=== PATIENT | male | born 1980 | race Caucasian/White ===

== ENCOUNTER → 2016-12-01 | Outpatient (CLI) | payer BC ==
--- NOTE | 2016-12-02 12:34 | XR ---
EXAMINATION TYPE: XR shoulder complete LT DATE OF EXAM: 12/01/2016 12:14 PM COMPARISON: NONE HISTORY: Pain TECHNIQUE: Three views are submitted. FINDINGS: The osseous structures are intact. There is no acute fracture or dislocation. The AC joint is maint ained. Questionable lucency along the mid shaft of the clavicle superiorly. IMPRESSION: 1. Questionable lucency along the cortex of the mid left clavicle. If this is an area of point tender ness recommend dedicated clavicular series.
--- NOTE | 2016-12-02 12:38 | XR ---
EXAMINATION TYPE: XR cervical spine comp DATE OF EXAM: 12/01/2016 12:14 PM COMPARISON: NONE HISTORY: Pain TECHNIQUE: Four views are submitted. FINDINGS: The odontoid is intact. There are no compression deformities. The prevertebral soft tissue structur es are within normal limits. Loss the normal cervical lordosis. There is a slight retrolisthesis of C5 relative to C6 and multilevel facet arthropathy. IMPRESSION: 1. Loss of the normal cervical lordosis. No foraminal encroachment. Facet arthropathy noted at multip le levels. Slight retrolisthesis of C5 relative to C6. Consider follow-up MRI.
== END ==
LOC: RADXRYALE 10:51
PROVIDERS: ATTEND Physician Assistant Medical
DX: M46.82 Other specified inflammatory spondylopathies, cervical region (principal); M25.512 Pain in left shoulder; G89.29 Other chronic pain
CPT/HCPCS: 72050

== ENCOUNTER → 2017-01-04 | Outpatient (CLI) | payer BC ==
--- NOTE | 2017-01-04 21:28 | MR ---
EXAMINATION TYPE: MR reg/candie wo con DATE OF EXAM: 01/04/2017 5:56 PM COMPARISON: NONE HISTORY: Neck pain, headaches, lt arm weakness, LBP, BLE radic, lumbar surgery 8 years ago CONTRAST: 0 mL intravenous MultiHance. TECHNIQUE: Multiplanar, multisequence images of the lumbar spine were acquired. FINDINGS: L5-S1: There is loss of disc height through this level. Right paracentral disc herniation is present. This is adjacent to the exiting right S1 nerve root. Compression is not identified. No spinal canal stenosis is present. Facet degenerative changes are present. L4-L5: Minimal disc bulge is present with mild anterior thecal sac flattening. No AP spinal canal bandar nosis is present. Neural foramen are patent. Disc height and disc hydration is normal. L3-L4: No significant disc bulge or disc herniation. No spinal canal stenosis. No foraminal stenosi s. Neural foramen are patent.. L2-L3: No significant disc bulge or disc herniation. No spinal canal stenosis. No foraminal stenosi s. Neural foramen are patent.. L1-L2: No significant disc bulge or disc herniation. No spinal canal stenosis. No foraminal stenosi s. Neural foramen are patent.. T12-L1: No significant disc bulge or disc herniation. No spinal canal stenosis. No foraminal stenos is. Neural foramen are patent.. IMPRESSION: 1. Right paracentral disc herniation L5-S1 with exiting right S1 nerve root contact without compressi on or displacement. EXAMINATION TYPE: MR reg/candie wo con DATE OF EXAM: 01/04/2017 5:56 PM COMPARISON: NONE HISTORY: Neck pain, headaches, lt arm weakness, LBP, BLE radic, lumbar surgery 8 years ago CONTRAST: Performed utilizing 0 mL intravenous MultiHance gadolinium contrast. TECHNIQUE: Multiplanar multiecho imaging on a 3.0 Kandis magnet is performed through the cervical spin e. FINDINGS: The craniovertebral junction is normal. Vertebral body alignment is normal. Cord signal is normal. C7-T1: No focal disc herniation or significant disc bulge is evident. No spinal canal stenosis or n eural foraminal stenosis is present. C6-7: Minimal central bulge may be present with anterior thecal sac contact. No AP spinal canal steno sis present. Neural foramen are patent.. C5-6: Mild central focal bulge is present with mild anterior thecal sac compression. No cord contact is evident. No spinal canal stenosis present. Neural foramen are patent.. C4-5: No focal disc herniation or significant disc bulge is evident. No spinal canal stenosis or flakito ral foraminal stenosis is present. C3-4: No focal disc herniation or significant disc bulge is evident. No spinal canal stenosis or flakito ral foraminal stenosis is present. C2-3: No focal disc herniation or significant disc bulge is evident. No spinal canal stenosis or flakito ral foraminal stenosis is present. IMPRESSIONS: 1. Mild central bulge C5-6 with minimal central disc bulge C6-7
== END | disposition home or self-care (01) ==
LOC: RADMRIMAIN 16:40
PROVIDERS: ATTEND Physician Assistant Medical
DX: M50.222 Other cervical disc displacement at C5-C6 level (principal); M50.30 Other cervical disc degeneration, unspecified cervical region; M51.27 Other intervertebral disc displacement, lumbosacral region; M43.10 Spondylolisthesis, site unspecified; M12.88 Other specific arthropathies, not elsewhere classified, other specified site
CPT/HCPCS: 72141; 72148

== ENCOUNTER 2019-01-25 18:21 | Inpatient (IN) | payer BC ==
[2019-01-25] MEDS ORDERED: SODIUM CHLORIDE 0.9% 1,000 ML IV STA ×2 (18:59→23:28)
[2019-01-25] MEDS ORDERED: HYDROmorphone 1 MG/ML 1 ML SYRINGE IVP STA (18:59)
[2019-01-25] MEDS ORDERED: METOCLOPRAMIDE 5 MG/ML 2 ML VIAL IVP STA (18:59)
[2019-01-25] MEDS ORDERED: diphenhydrAMINE 50 MG/ML 1 ML VIAL IVP STA (19:00)
[2019-01-25 19:19] LABS: Basophils % (A) 0 %; Eosinophils % (A) 0 %; HCT 45.1 % (39.0-53.0); HGB 15.4 gm/dL (13.0-17.5); Lymphocytes # (A) 0.8 k/uL (1.0-4.8); Lymphocytes % (A) 8 %; MCH 30.3 pg (25.0-35.0); MCHC 34.1 g/dL (31.0-37.0); MCV 88.8 fL (80.0-100.0); Mean Platelet Volume 7.4; Monocytes # (A) 0.5 k/uL (0-1.0); Monocytes % (A) 4 %; Neutrophils % (A) 86 %; Platelet Count 309 k/uL (150-450); RBC 5.07 m/uL (4.30-5.90); RDW 13.8 % (11.5-15.5); WBC 10.5 k/uL (3.8-10.6)
[2019-01-25 19:32] LABS: ALT 28 U/L (21-72); AST 22 U/L (17-59); African American GFR (CKD) >90 (>60 ml/min/1.73 sqM); Albumin 4.8 g/dL (3.5-5.0); Alkaline Phosphatase 82 U/L (38-126); Amylase 44 U/L (30-110); Anion Gap 11 mmol/L; Blood Urea Nitrogen 16 mg/dL (9-20); Calcium 9.9 mg/dL (8.4-10.2); Carbon Dioxide 24 mmol/L (22-30); Chloride 103 mmol/L (98-107); Glucose 136 mg/dL (74-99); Lipase 42 U/L (23-300); Potassium 4.2 mmol/L (3.5-5.1); Sodium 138 mmol/L (137-145); Total Bilirubin 0.7 mg/dL (0.2-1.3); Total Protein 7.5 g/dL (6.3-8.2)
[2019-01-25 19:43] LABS: Appearance,Urine Turbid (Clear); Bilirubin,Urine Negative (Negative); Blood,Urine Negative (Negative); Budding Yeast,Urine Many /hpf; Color,Urine Yellow; Glucose,Urine (UA) Negative (Negative); Ketones,Urine 2+ (Negative); Leukocyte Esterase,Urine Negative (Negative); Mucus,Urine Rare /hpf; Nitrite,Urine Negative (Negative); PH, Urine 8.5 (5.0-8.0); Protein,Urine Trace (Negative); Specific Gravity,Urine 1.023 (1.001-1.035); Urobilinogen,Urine <2.0 mg/dL (<2.0)
[2019-01-25] MEDS ORDERED: SODIUM CHLORIDE 0.9% 1,000 ML IV ONE (20:00)
--- NOTE | 2019-01-25 20:04 | ED ---
Abdominal Pain HPI - General Source: patient, EMS Mode of arrival: EMS Limitations: no limitations <Kaci Mooney - Last Filed: 01/25/19 23:02> <Flako Rebollar - Last Filed: 01/25/19 23:28> - General Chief Complaint: Abdominal Pain Stated Complaint: abd pain Time Seen by Provider: 01/25/19 18:41 - History of Present Illness Initial Comments: 38-year-old male patient presents to the emergency department today for evaluation of abdominal pain and vomiting. Patient states started earlier this afternoon. Patient states that the pain is centrally located radiating through to his back. Patient states he's had several episodes of vomiting. Denies any diarrhea. Denies any hematemesis, hematochezia, melena. States he feels chilled and feverish right now. Patient states he has had appendectomy and hernia repair in the past. Denies any hematuria, dysuria, urinary urgency, urinary frequency. Denies any pain more on one side than the other. Denies any chest pain or shortness of breath. Patient denies any recent rash, numbness, tingling, dizziness, weakness, headache, visual changes, or any other comp laints. (Kaci Mooney) - Related Data Home Medications Medication Instructions Recorded Confirmed Meloxicam [Mobic] 7.5 mg PO BID 01/25/19 01/25/19 oxyCODONE-APAP 7.5-325MG [Percocet 1 tab PO Q4HR PRN 01/25/19 01/25/19 7.5-325 mg] traZODone HCL 25 - 50 mg PO HS PRN 01/25/19 01/25/19 Allergies Allergy/AdvReac Type Severity Reaction Status Date / Time No Known Allergies Allergy Unverified 01/25/19 18:59 Review of Systems ROS Other: All systems not noted in ROS Statement are negative. <Kaci Mooney - Last Filed: 01/25/19 23:02> ROS Other: All systems not noted in ROS Statement are negative. <Flako Rebollar - Last Filed: 01/25/19 23:28> ROS Statement: Those systems with pertinent positive or pertinent negative responses have been documented in the HPI. Past Medical History Past Medical History: No Reported History History of Any Multi-Drug Resistant Organisms: None Reported Past Surgical History: Appendectomy, Orthopedic Surgery Additional Past Surgical History / Comment(s): several back surgeries; hernia surgery Past Psychological History: No Psychological Hx Reported Smoking Status: Former smoker Past Alcohol Use History: None Reported Past Drug Use History: None Reported <Kaci Mooney - Last Filed: 01/25/19 23:02> General Exam Limitations: no limitations General appearance: alert, in no apparent distress, other (This is a well-deve loped, well-nourished adult male patient in mild distress related to pain and vomiting. Vital signs upon presentation are temperature 97.6F, pulse 51, respirations 18, blood pressure 127/76, pulse ox 100% on room air.) Eye exam: Present: normal appearance, PERRL, EOMI. Absent: scleral icterus, conjunctival injection, periorbital swelling ENT exam: Present: normal exam, normal oropharynx, mucous membranes moist Respiratory exam: Present: normal lung sounds bilaterally. Absent: respiratory distress, wheezes, rales, rhonchi, stridor Cardiovascular Exam: Present: regular rate, normal rhythm, normal heart sounds. Absent: systolic murmur, diastolic murmur, rubs, gallop, clicks GI/Abdominal exam: Present: soft, tenderness (Generalized) Neurological exam: Present: alert, oriented X3, CN II-XII intact Psychiatric exam: Present: normal affect, normal mood Skin exam: Present: warm, dry, intact, normal color. Absent: rash <Kaci Mooney - Last Filed: 01/25/19 23:02> Course Vital Signs 01/25/19 01/25/19 01/25/19 18:25 19:23 20:57 Temperature 97.6 F Pulse Rate 51 L 56 L 51 L Respiratory 18 20 16 Rate Blood Pressure 127/76 127/76 130/96 O2 Sat by Pulse 100 100 100 Oximetry 01/25/19 23:00 Temperature Pulse Rate 51 L Respiratory 20 Rate Blood Pressure 135/79 O2 Sat by Pulse Oximetry Medical Decision Making - Lab Data Result diagrams: 01/25/19 19:03 01/25/19 19:03 <Kaci Mooney - Last Filed: 01/25/19 23:02> - Lab Data Result diagrams: 01/25/19 19:03 01/25/19 19:03 <Flako Rebollar - Last Filed: 01/25/19 23:28> - Medical Decision Making Patient reevaluated by myself, Dr. Rebollar. Patient states he does have now some mild improvement with morphine. Abdomen exam has mild to moderate diffuse tenderness with mild guarding. Abdomen is not rigid. Results and reports reviewed. Family updated. Patient updated. Case was discussed in detail with Dr. Beltran who is agreeable to admit patient for observation and will reevaluate in the morning. Patient then again reevaluated and feels restless. This may be a results of Reglan given. Patient will be given Ativan and further medication. Repeat test will be ordered for now. (Flako Rebollar) - Lab Data Lab Results 01/25/19 01/25/19 01/25/19 Range/Units 19:03 19:03 19:03 WBC 10.5 (3.8-10.6) k/uL RBC 5.07 (4.30-5.90) m/uL Hgb 15.4 (13.0-17.5) gm/dL Hct 45.1 (39.0-53.0) % MCV 88.8 (80.0-100.0) fL MCH 30.3 (25.0-35.0) pg MCHC 34.1 (31.0-37.0) g/dL RDW 13.8 (11.5-15.5) % Plt Count 309 (150-450) k/uL Neutrophils % 86 % Lymphocytes % 8 % Monocytes % 4 % Eosinophils % 0 % Basophils % 0 % Neutrophils # 9.0 H (1.3-7.7) k/uL Lymphocytes # 0.8 L (1.0-4.8) k/uL Monocytes # 0.5 (0-1.0) k/uL Eosinophils # 0.0 (0-0.7) k/uL Basophils # 0.0 (0-0.2) k/uL Sodium 138 (137-145) mmol/L Potassium 4.2 (3.5-5.1) mmol/L Chloride 103 (98-107) mmol/L Carbon Dioxide 24 (22-30) mmol/L Anion Gap 11 mmol/L BUN 16 (9-20) mg/dL Creatinine 0.75 (0.66-1.25) mg/dL Est GFR (CKD-EPI)AfAm >90 (>60 ml/min/1.73 sqM) Est GFR (CKD-EPI)NonAf >90 (>60 ml/min/1.73 sqM) Glucose 136 H (74-99) mg/dL Lactic Ac Sepsis Rflx Plasma Lactic Acid Mohan 2.2 H* (0.7-2.0) mmol/L Calcium 9.9 (8.4-10.2) mg/dL Total Bilirubin 0.7 (0.2-1.3) mg/dL AST 22 (17-59) U/L ALT 28 (21-72) U/L Alkaline Phosphatase 82 (38-126) U/L Total Protein 7.5 (6.3-8.2) g/dL Albumin 4.8 (3.5-5.0) g/dL Amylase 44 (30-110) U/L Lipase 42 (23-300) U/L Urine Color Urine Appearance (Clear) Urine pH (5.0-8.0) Ur Specific [place] (1.001-1.035) Urine Protein (Negative) Urine Glucose (UA) (Negative) Urine Ketones (Negative) Urine Blood (Negative) Urine Nitrite (Negative) Urine Bilirubin (Negative) Urine Urobilinogen (<2.0) mg/dL Ur Leukocyte Esterase (Negative) Urine Mucus (None) /hpf Urine Yeast (Budding) (None) /hpf Urine Opiates Screen (NotDetected) Ur Oxycodone Screen (NotDetected) Urine Methadone Screen (NotDetected) Ur Propoxyphene Screen (NotDetected) Ur Barbiturates Screen (NotDetected) U Tricyclic Antidepress (NotDetected) Ur Phencyclidine Scrn (NotDetected) Ur Amphetamines Screen (NotDetected) U Methamphetamines Scrn (NotDetected) U Benzodiazepines Scrn (NotDetected) Urine Cocaine Screen (NotDetected) U Marijuana (THC) Screen (NotDetected) 01/25/19 01/25/19 01/25/19 Range/Units 19:34 19:35 20:36 WBC (3.8-10.6) k/uL RBC (4.30-5.90) m/uL Hgb (13.0-17.5) gm/dL Hct (39.0-53.0) % MCV (80.0-100.0) fL MCH (25.0-35.0) pg MCHC (31.0-37.0) g/dL RDW (11.5-15.5) % Plt Count (150-450) k/uL Neutrophils % % Lymphocytes % % Monocytes % % Eosinophils % % Basophils % % Neutrophils # (1.3-7.7) k/uL Lymphocytes # (1.0-4.8) k/uL Monocytes # (0-1.0) k/uL Eosinophils # (0-0.7) k/uL Basophils # (0-0.2) k/uL Sodium (137-145) mmol/L Potassium (3.5-5.1) mmol/L Chloride (98-107) mmol/L Carbon Dioxide (22-30) mmol/L Anion Gap mmol/L BUN (9-20) mg/dL Creatinine (0.66-1.25) mg/dL Est GFR (CKD-EPI)AfAm (>60 ml/min/1.73 sqM) Est GFR (CKD-EPI)NonAf (>60 ml/min/1.73 sqM) Glucose (74-99) mg/dL Lactic Ac Sepsis Rflx Y Plasma Lactic Acid Mohan (0.7-2.0) mmol/L Calcium (8.4-10.2) mg/dL Total Bilirubin (0.2-1.3) mg/dL AST (17-59) U/L ALT (21-72) U/L Alkaline Phosphatase (38-126) U/L Total Protein (6.3-8.2) g/dL Albumin (3.5-5.0) g/dL Amylase (30-110) U/L Lipase (23-300) U/L Urine Color Yellow Urine Appearance Turbid (Clear) Urine pH 8.5 H (5.0-8.0) Ur Specific [place] 1.023 (1.001-1.035) Urine Protein Trace H (Negative) Urine Glucose (UA) Negative (Negative) Urine Ketones 2+ H (Negative) Urine Blood Negative (Negative) Urine Nitrite Negative (Negative) Urine Bilirubin Negative (Negative) Urine Urobilinogen <2.0 (<2.0) mg/dL Ur Leukocyte Esterase Negative (Negative) Urine Mucus Rare H (None) /hpf Urine Yeast (Budding) Many H (None) /hpf Urine Opiates Screen Detected H (NotDetected) Ur Oxycodone Screen Detected H (NotDetected) Urine Methadone Screen Not Detected (NotDetected) Ur Propoxyphene Screen Not Detected (NotDetected) Ur Barbiturates Screen Not Detected (NotDetected) U Tricyclic Antidepress Not Detected (NotDetected) Ur Phencyclidine Scrn Not Detected (NotDetected) Ur Amphetamines Screen Not Detected (NotDetected) U Methamphetamines Scrn Not Detected (NotDetected) U Benzodiazepines Scrn Not Detected (NotDetected) Urine Cocaine Screen Not Detected (NotDetected) U Marijuana (THC) Screen Not Detected (NotDetected) Disposition Decision to Admit Reason: Admit from EC Decision Date: 01/25/19 Decision Time: 23:03 <Kaci Mooney - Last Filed: 01/25/19 23:02> <Flako Rebollar - Last Filed: 01/25/19 23:28> Clinical Impression: Intractable abdominal pain, Dysfunctional gallbladder Disposition: ADMITTED IP TO THIS [facility] Condition: Serious
--- NOTE | 2019-01-25 20:15 | CT ---
EXAMINATION TYPE: CT abdomen pelvis w con DATE OF EXAM: 01/25/2019 COMPARISON: None HISTORY: Abdomen pain starting today, radiating into back CT DLP: 776 mGycm Automated exposure control for dose reduction was used. TECHNIQUE: Helical acquisition of images was performed from the lung bases through the pelvis. CONTRAST: Performed without Oral Contrast and with IV Contrast, patient injected with 100 mL of Isovue 300. FINDINGS: Lung bases are clear. There is no pleural effusion. Heart size is normal. Stomach appears normal. Liver spleen pancreas appear normal. Bile ducts are not dilated. Gallbladder is mildly dilated and measures 4.5 cm. There is no adrenal mass. Kidneys show satisfactory contrast opacification. There is no hydronephrosi s. There is no evidence of renal mass. There is no retroperitoneal adenopathy. Ureters are not dilated. Bladder distends smoothly. There is small prostate calcification on the righ t side. There is no inguinal hernia. There is no free fluid in the pelvis. There is no mesenteric delfina ma. There is no evidence of a bowel obstruction. I see no intestinal wall thickening. There is no asc ites or free air. There is narrowing of L5-S1 disc space. I see no bony destructive process. The bony pelvis appears intact. Appendix is not seen. There is no sign of a thickened appendix. IMPRESSION: NEGATIVE CT SCAN ABDOMEN AND PELVIS. MILD SPONDYLOSIS AT L5-S1.
[2019-01-25] MEDS ORDERED: HYDROmorphone 2 MG/ML 1 ML SYRINGE IVP STA (20:30)
[2019-01-25] MEDS ORDERED: DICYCLOMINE 10 MG/ML 2 ML AMP IM STA (20:30)
[2019-01-25 20:56] LABS: Amphetamine Screen,Urine Not Detected (NotDetected); Barbiturate Screen,Urine Not Detected (NotDetected); Benzodiazepines Screen,Urine Not Detected (NotDetected); Cocaine Screen,Urine Not Detected (NotDetected); Methadone Screen, Urine Not Detected (NotDetected); Opiate Screen,Urine Detected (NotDetected); Oxycodone Screen, Urine Detected (NotDetected); Phencyclidine Screen,Urine Not Detected (NotDetected); Tricyclic Antidepressant,Urine Not Detected (NotDetected); Urn Cannabinoid Scrn Not Detected (NotDetected)
--- NOTE | 2019-01-25 21:04 | US ---
EXAMINATION TYPE: US abdomen limited DATE OF EXAM: 01/25/2019 COMPARISON: NONE CLINICAL HISTORY: Pain/Dilated Gallbladder. Pain, nausea and vomiting. EXAM MEASUREMENTS: Liver Length: 14.0 cm Gallbladder Wall: 0.3 cm CBD: 0.3 cm Right Kidney: 12.2 x 4.6 x 3.9 cm Exam limitations due to patient unable to hold breath and body habitus. Pancreas: Tail obscured by overlying bowel gas Liver: Appears wnl Gallbladder: 9.7 cm no stones seen. Evidence for sonographic Luna's sign: Yes CBD: wnl Right Kidney: wnl IMPRESSION: No gallstones or dilated ducts. Large gallbladder measures 4.5 x 9.6 cm. This could relat e to gallbladder dysfunction.
[2019-01-25] MEDS ORDERED: MORPHINE SULFATE 4 MG/ML SYRINGE IVP STA (22:11)
[2019-01-25] MEDS ORDERED: ONDANSETRON 4 MG/2 ML VIAL IVP STA ×2 (22:21→23:11)
[2019-01-25] MEDS ORDERED: NALOXONE 0.4 MG/ML 1 ML VIAL IV PRN (22:59)
[2019-01-25] MEDS ORDERED: LORazepam 2 MG/ML INJ IV STA (23:11)
[2019-01-25] MEDS ORDERED: SCOPOLAMINE 1.5MG/72HR PATCH TRANSDERM STA (23:12)
[2019-01-25] MEDS ORDERED: FAMOTIDINE 20 MG/2 ML VIAL IV STA (23:13)
[2019-01-26 00:29] LABS: Basophils % (A) 0 %; Eosinophils % (A) 0 %; HCT 46.1 % (39.0-53.0); HGB 15.7 gm/dL (13.0-17.5); Lymphocytes # (A) 0.8 k/uL (1.0-4.8); Lymphocytes % (A) 6 %; MCH 30.6 pg (25.0-35.0); MCHC 34.1 g/dL (31.0-37.0); MCV 89.6 fL (80.0-100.0); Mean Platelet Volume 7.5; Monocytes # (A) 0.4 k/uL (0-1.0); Monocytes % (A) 3 %; Neutrophils % (A) 90 %; Platelet Count 306 k/uL (150-450); RBC 5.15 m/uL (4.30-5.90); RDW 13.9 % (11.5-15.5); WBC 13.3 k/uL (3.8-10.6)
[2019-01-26 00:32] LABS: Appearance,Urine Clear (Clear); Bilirubin,Urine Negative (Negative); Blood,Urine Negative (Negative); Color,Urine Light Yellow; Glucose,Urine (UA) Trace (Negative); Ketones,Urine 2+ (Negative); Leukocyte Esterase,Urine Negative (Negative); Nitrite,Urine Negative (Negative); Protein,Urine Trace (Negative); Urobilinogen,Urine <2.0 mg/dL (<2.0)
[2019-01-26 00:39] LABS: African American GFR (CKD) >90 (>60 ml/min/1.73 sqM); Albumin 4.9 g/dL (3.5-5.0); Amylase 42 U/L (30-110); Anion Gap 12 mmol/L; Calcium 9.4 mg/dL (8.4-10.2); Carbon Dioxide 18 mmol/L (22-30); Chloride 106 mmol/L (98-107); Glucose 183 mg/dL (74-99); Lipase 34 U/L (23-300); Sodium 136 mmol/L (137-145); Total Bilirubin 0.9 mg/dL (0.2-1.3); Total Protein 7.7 g/dL (6.3-8.2)
[2019-01-26 00:40] LABS: Specific Gravity,Urine >1.050 (1.001-1.035)
[2019-01-26 00:43] LABS: AST 32 U/L (17-59); Blood Urea Nitrogen 13 mg/dL (9-20); Potassium 3.9 mmol/L (3.5-5.1)
[2019-01-26 00:44] LABS: ALT 27 U/L (21-72); Alkaline Phosphatase 72 U/L (38-126)
[2019-01-26] MEDS: SODIUM CHLORIDE 0.9% 1,000 ML IV SCH ×3 (02:10→14:02)
[2019-01-26] MEDS: ONDANSETRON 4 MG/2 ML VIAL IVP PRN ×2 (03:01→11:05)
[2019-01-26] MEDS: HYDROmorphone 1 MG/ML 1 ML SYRINGE IVP PRN ×5 (03:24→14:02)
[2019-01-26 07:16] LABS: HCT 55.3 % (39.0-53.0); HGB 18.4 gm/dL (13.0-17.5); MCH 29.8 pg (25.0-35.0); MCHC 33.3 g/dL (31.0-37.0); MCV 89.3 fL (80.0-100.0); Mean Platelet Volume 7.5; Platelet Count 344 k/uL (150-450); RBC 6.19 m/uL (4.30-5.90); RDW 14.3 % (11.5-15.5); WBC 29.4 k/uL (3.8-10.6)
[2019-01-26 07:30] LABS: ALT 26 U/L (21-72); AST 24 U/L (17-59); African American GFR (CKD) >90 (>60 ml/min/1.73 sqM); Albumin 4.6 g/dL (3.5-5.0); Alkaline Phosphatase 69 U/L (38-126); Anion Gap 12 mmol/L; Blood Urea Nitrogen 14 mg/dL (9-20); Calcium 9.7 mg/dL (8.4-10.2); Carbon Dioxide 21 mmol/L (22-30); Chloride 105 mmol/L (98-107); Glucose 168 mg/dL (74-99); Lipase 59 U/L (23-300); Potassium 4.2 mmol/L (3.5-5.1); Sodium 138 mmol/L (137-145); Total Bilirubin 0.7 mg/dL (0.2-1.3); Total Protein 7.2 g/dL (6.3-8.2)
[2019-01-26] MEDS ORDERED: SODIUM CHLORIDE 0.9% 1,000 ML IV ONE (07:37)
[2019-01-26] MEDS ORDERED: PIPERACILLIN-TAZOBACTAM 3.375 GM in SODIUM CHLORIDE 0.9% 100 ML IVPB STA (07:38)
[2019-01-26 08:13] LABS: Band Neutrophils % 2 %; Lymphocytes # (M) 0.29 k/uL (1.0-4.8); Monocytes # (M) 1.76 k/uL (0-1.0); Neutrophils % (M) 91 %; Nucleated Red Blood Cells 0 /100 WBC (0-0); Total Cells Counted 100
--- NOTE | 2019-01-26 10:37 | XR ---
EXAMINATION TYPE: XR abdomen acute w cxr DATE OF EXAM: 01/26/2019 COMPARISON: 01/25/2019 HISTORY: Leukocytosis TECHNIQUE: Supine, upright, and left side down lateral decubitus views of the abdomen are obtained. FINDINGS: The lungs are clear. There is no overt failure or focal pneumonia. The bowel gas pattern is nonspecific there are dilated bowel loops in the upper abdomen. Contrast wit hin the bladder is noted. Retained fecal debris suspected involving the right colon. IMPRESSION: There are dilated bowel loops within the abdomen which could be on the basis of an ileus or partial o bstruction. Correlate clinically.
--- NOTE | 2019-01-26 12:59 | P.GSHP ---
<Janice Nova A - Last Filed: 01/26/19 13:00> History of Present Illness H&P Date: 01/26/19 Chief Complaint: abdominal pain CHIEF COMPLAINT: abdominal pain HISTORY OF PRESENT ILLNESS: 38-year-old male who presented to the ER with a chief complaint of abdominal pain. Patient states the pain began suddenly around 1130am yesterday. He was at home and had just finished eating a bowl of cereal. His spouse is at the bedside and states he was doubled over in pain. Patient also reports nausea and multiple episodes of vomiting yesterday. He denies diarrhea or constipation. He reports abdominal bloating and distention this morning. He continues to report severe diffuse abdominal pain. Reports normal bowel movement yesterday morning. Patient denies alcohol use. He reports quitting smoking 6 months ago but does use chewing tobacco. Denies illicit drug use. Patient states he has chronic back pain and is prescribed narcotics from his primary care physician. He reports taking NSAIDs approximately once or twice a month. He reports a history of ulcers many years ago. Patients white count was 10.1 on admission. Repeat was 13.3. White count increased to 29.4 this morning. Patient is afebrile. Vital signs stable. He has been started on Zosyn and infectious disease has been consulted. PAST MEDICAL HISTORY: See list. PAST SURGICAL HISTORY: See list. SOCIAL HISTORY: No illicit drug use. REVIEW OF SYSTEMS: CONSTITUTIONAL: Denies fever or chills. HEENT: Denies blurred vision, vision changes, or eye pain. Denies hemoptysis CARDIOVASCULAR: Denies chest pain or pressure. RESPIRATORY: No shortness of breath. GASTROINTESTINAL: Refer to HPI for pertinent findings HEMATOLOGIC: Denies bleeding disorders. GENITOURINARY: Denies any blood in urine. SKIN: Denies pruitis. Denies rash. PHYSICAL EXAM: VITAL SIGNS: Reviewed. GENERAL: Well-developed in no acute distress. HEENT: No sclera icterus. Extraocular movements grossly intact. Moist buccal mucosa. Head is atraumatic, normocephalic. ABDOMEN: Firm. Distended. Hypoactive bowel sounds. Diffuse severe abdominal pain upon tenderness. NEUROLOGIC: Alert and oriented. Cranial nerves II through XII grossly intact. IMAGING: Per radiologist's dictation 1. CT abdomen and pelvis: Negative for acute abdominal findings. Gallbladder is mildly dilated and measures 4.5 cm. 2. Abdominal ultrasound: No gallstones or dilated ducts. Large gallbladder measures 4.59.6 m. This could relate to go bladder dysfunction. No stones visualized 3. Acute abdominal series: Dilated bowel loops within the abdomen which could be on the basis of ileus or partial obstruction. ASSESSMENT: 1. Abdominal pain with nausea/vomiting with clinical signs of peritonitis 2. Leukocytosis 3 Elevated lactic acid 4. History of appendectomy 5. History of ulcers per patient 6. Chronic back pain 7. Chronic opioid use secondary to chronic back pain PLAN: NPO. Continue IV fluids. Continue antibiotics. Monitor WBC. Pain control. Infectious disease is on consult Patient to undergo exploratory laparotomy with possible ostomy today with Dr. Yang Nurse practitioner note has been reviewed by physician. Signing provider agrees with the documented findings, assessment, and plan of care. Past Medical History Past Medical History: No Reported History History of Any Multi-Drug Resistant Organisms: None Reported Past Surgical History: Appendectomy, Orthopedic Surgery Additional Past Surgical History / Comment(s): several back surgeries; hernia surgery Smoking Status: Current every day smoker Medications and Allergies Home Medications Medication Instructions Recorded Confirmed Type Meloxicam [Mobic] 7.5 mg PO BID 01/25/19 01/26/19 History RX: traZODone HCL 25 - 50 mg PO HS PRN 01/25/19 01/26/19 History oxyCODONE-APAP 7.5-325MG [Percocet 1 tab PO Q4HR PRN 01/25/19 01/26/19 History 7.5-325 mg] Allergies Allergy/AdvReac Type Severity Reaction Status Date / Time No Known Allergies Allergy Verified 01/26/19 00:49 Surgical - Exam Vital Signs Temp Pulse Resp BP Pulse Ox 97.6 F 51 L 18 127/76 100 01/25/19 18:25 01/25/19 18:25 01/25/19 18:25 01/25/19 18:25 01/25/19 18:25 Results - Labs 01/26/19 06:55 01/26/19 06:55 Abnormal Lab Results - Last 24 Hours (Table) 01/25/19 01/25/19 01/25/19 Range/Units 19:03 19:03 19:03 WBC (3.8-10.6) k/uL RBC (4.30-5.90) m/uL Hgb (13.0-17.5) gm/dL Hct (39.0-53.0) % Neutrophils # 9.0 H (1.3-7.7) k/uL Neutrophils # (Manual) (1.3-7.7) k/uL Lymphocytes # 0.8 L (1.0-4.8) k/uL Lymphocytes # (Manual) (1.0-4.8) k/uL Monocytes # (Manual) (0-1.0) k/uL Sodium (137-145) mmol/L Carbon Dioxide (22-30) mmol/L Creatinine (0.66-1.25) mg/dL Glucose 136 H (74-99) mg/dL Plasma Lactic Acid Mohan 2.2 H* (0.7-2.0) mmol/L Creatine Kinase (55-170) U/L Urine pH (5.0-8.0) Ur Specific Fillmore (1.001-1.035) Urine Protein (Negative) Urine Glucose (UA) (Negative) Urine Ketones (Negative) Urine Mucus (None) /hpf Urine Yeast (Budding) (None) /hpf Urine Opiates Screen (NotDetected) Ur Oxycodone Screen (NotDetected) 01/25/19 01/25/19 01/25/19 Range/Units 19:03 19:35 20:36 WBC (3.8-10.6) k/uL RBC (4.30-5.90) m/uL Hgb (13.0-17.5) gm/dL Hct (39.0-53.0) % Neutrophils # (1.3-7.7) k/uL Neutrophils # (Manual) (1.3-7.7) k/uL Lymphocytes # (1.0-4.8) k/uL Lymphocytes # (Manual) (1.0-4.8) k/uL Monocytes # (Manual) (0-1.0) k/uL Sodium (137-145) mmol/L Carbon Dioxide (22-30) mmol/L Creatinine (0.66-1.25) mg/dL Glucose (74-99) mg/dL Plasma Lactic Acid Mohan (0.7-2.0) mmol/L Creatine Kinase 191 H (55-170) U/L Urine pH 8.5 H (5.0-8.0) Ur Specific Fill[place] (1.001-1.035) Urine Protein Trace H (Negative) Urine Glucose (UA) (Negative) Urine Ketones 2+ H (Negative) Urine Mucus Rare H (None) /hpf Urine Yeast (Budding) Many H (None) /hpf Urine Opiates Screen Detected H (NotDetected) Ur Oxycodone Screen Detected H (NotDetected) 01/26/19 01/26/19 01/26/19 Range/Units 00:13 00:13 00:13 WBC 13.3 H (3.8-10.6) k/uL RBC (4.30-5.90) m/uL Hgb (13.0-17.5) gm/dL Hct (39.0-53.0) % Neutrophils # 12.0 H (1.3-7.7) k/uL Neutrophils # (Manual) (1.3-7.7) k/uL Lymphocytes # 0.8 L (1.0-4.8) k/uL Lymphocytes # (Manual) (1.0-4.8) k/uL Monocytes # (Manual) (0-1.0) k/uL Sodium 136 L (137-145) mmol/L Carbon Dioxide 18 L (22-30) mmol/L Creatinine 0.57 L (0.66-1.25) mg/dL Glucose 183 H (74-99) mg/dL Plasma Lactic Acid Mohan 2.3 H* (0.7-2.0) mmol/L Creatine Kinase (55-170) U/L Urine pH (5.0-8.0) Ur Specific [place] (1.001-1.035) Urine Protein (Negative) Urine Glucose (UA) (Negative) Urine Ketones (Negative) Urine Mucus (None) /hpf Urine Yeast (Budding) (None) /hpf Urine Opiates Screen (NotDetected) Ur Oxycodone Screen (NotDetected) 01/26/19 01/26/19 01/26/19 Range/Units 00:13 06:55 06:55 WBC 29.4 H (3.8-10.6) k/uL RBC 6.19 H (4.30-5.90) m/uL Hgb 18.4 H (13.0-17.5) gm/dL Hct 55.3 H (39.0-53.0) % Neutrophils # (1.3-7.7) k/uL Neutrophils # (Manual) 27.30 H (1.3-7.7) k/uL Lymphocytes # (1.0-4.8) k/uL Lymphocytes # (Manual) 0.29 L (1.0-4.8) k/uL Monocytes # (Manual) 1.76 H (0-1.0) k/uL Sodium (137-145) mmol/L Carbon Dioxide 21 L (22-30) mmol/L Creatinine 0.63 L (0.66-1.25) mg/dL Glucose 168 H (74-99) mg/dL Plasma Lactic Acid Mohan (0.7-2.0) mmol/L Creatine Kinase (55-170) U/L Urine pH (5.0-8.0) Ur Specific [place] >1.050 H (1.001-1.035) Urine Protein Trace H (Negative) Urine Glucose (UA) Trace H (Negative) Urine Ketones 2+ H (Negative) Urine Mucus (None) /hpf Urine Yeast (Budding) (None) /hpf Urine Opiates Screen (NotDetected) Ur Oxycodone Screen (NotDetected) Diabetes panel 01/25/19 01/26/19 01/26/19 Range/Units 19:03 00:13 06:55 Sodium 138 136 L 138 (137-145) mmol/L Potassium 4.2 3.9 4.2 (3.5-5.1) mmol/L Chloride 103 106 105 (98-107) mmol/L Carbon Dioxide 24 18 L 21 L (22-30) mmol/L BUN 16 13 14 (9-20) mg/dL Creatinine 0.75 0.57 L 0.63 L (0.66-1.25) mg/dL Glucose 136 H 183 H 168 H (74-99) mg/dL Calcium 9.9 9.4 9.7 (8.4-10.2) mg/dL AST 22 32 24 (17-59) U/L ALT 28 27 26 (21-72) U/L Alkaline Phosphatase 82 72 69 (38-126) U/L Total Protein 7.5 7.7 7.2 (6.3-8.2) g/dL Albumin 4.8 4.9 4.6 (3.5-5.0) g/dL Calcium panel 01/25/19 01/26/19 01/26/19 Range/Units 19:03 00:13 06:55 Calcium 9.9 9.4 9.7 (8.4-10.2) mg/dL Albumin 4.8 4.9 4.6 (3.5-5.0) g/dL Pituitary panel 01/25/19 01/26/19 01/26/19 Range/Units 19:03 00:13 06:55 Sodium 138 136 L 138 (137-145) mmol/L Potassium 4.2 3.9 4.2 (3.5-5.1) mmol/L Chloride 103 106 105 (98-107) mmol/L Carbon Dioxide 24 18 L 21 L (22-30) mmol/L BUN 16 13 14 (9-20) mg/dL Creatinine 0.75 0.57 L 0.63 L (0.66-1.25) mg/dL Glucose 136 H 183 H 168 H (74-99) mg/dL Calcium 9.9 9.4 9.7 (8.4-10.2) mg/dL Adrenal panel 01/25/19 01/26/19 01/26/19 Range/Units 19: 00:13 06:55 Sodium 138 136 L 138 (137-145) mmol/L Potassium 4.2 3.9 4.2 (3.5-5.1) mmol/L Chloride 103 106 105 (98-107) mmol/L Carbon Dioxide 24 18 L 21 L (22-30) mmol/L BUN 16 13 14 (9-20) mg/dL Creatinine 0.75 0.57 L 0.63 L (0.66-1.25) mg/dL Glucose 136 H 183 H 168 H (74-99) mg/dL Calcium 9.9 9.4 9.7 (8.4-10.2) mg/dL Total Bilirubin 0.7 0.9 0.7 (0.2-1.3) mg/dL AST 22 32 24 (17-59) U/L ALT 28 27 26 (21-72) U/L Alkaline Phosphatase 82 72 69 (38-126) U/L Total Protein 7.5 7.7 7.2 (6.3-8.2) g/dL Albumin 4.8 4.9 4.6 (3.5-5.0) g/dL <Sugey Yang - Last Filed: 01/27/19 17:34> History of Present Illness Patient seen and evaluated. On exam, patient has diffuse peritonitis. Surgical intervention as described. REVIEW OF ORGAN SYSTEMS: CONSTITUTIONAL: No fevers or chills. No recent weight loss. EYES: Denies any trouble with vision. No glasses. HEENT: No difficulties with hearing. No nosebleeds. No difficulty swallowing. RESPIRATORY: Denies pneumonia. Denies any troubles with breathing or dyspnea on exertion. CARDIOVASCULAR: Denies any chest pain, palpitations, or recent heart attacks. GASTROINTESTINAL: No reports of blood in stools. Reports past history of gastric ulcers over 10 years ago. GENITOURINARY: Denies any blood in urine or increased urinary frequency. NEUROLOGICAL: Denies any numbness or tingling along the distal extremities. No seizure disorders or headaches. MUSCULOSKELETAL: Has back pain, stiffness or joint arthritis. SKIN: No current skin cancer. No rash. PSYCHIATRIC: Denies current depression or suicidal thoughts. ENDOCRINE: Denies current thyroid disorders. Denies any blood sugar glucose intolerance. HEME/LYMPHATIC: Denies any lumps and bumps around the neck. No recent deep venous thrombosis. ALLERGY/IMMUNOLOGY: No immunoglobulin therapy. No immune deficiencies. BREAST: Denies current breast lumps, pain or nipple discharge. PHYSICAL EXAM: VITALS: Reviewed CONSTITUTIONAL: Well developed and in no acute distress. EYES: Conjuctivae without sclera icterus. Pupils are equally round and reactive to light. Extraocular movements grossly intact. HEAD, EARS, NOSE, THROAT: Moist buccal mucosa. Head is atraumatic, normocephalic. Hears conversational speech. No nasal drainage. Good dentition. NECK: Supple. No JV distention. No thyroidomegaly. RESPIRATORY: Non-labored respirations and equal bilateral excursions. No gross wheezes. CARDIOVASCULAR: Tachycardia. Palpable 2+ radial pulses. ABDOMEN: Peritoneal irritation on exam with gentle rocking of the bed. Otherwise peritonitis. Mild distention. LYMPH: No neck lymphadenopathy. No axillary lymphadenopathy. MUSCULOSKELETAL: Nail and fingers with good capillary refill. SKIN: Warm and well perfused with good skin turgor. NEUROLOGIC: Cranial nerves I through XII grossly intact. Sensation upper and extremities intact. No focal or lateralizing signs. PSYCH: Appropriate affect. Alert and oriented to person, place and time. Displays appropriate insight. CLINCAL LABS: Reviewed RADIOLOGY: Report reviewed. Dilated gallbladder. IMAGING: Independently reviewed with questionable internal hernia. No free air. ASSESSMENT: 1. Peritonitis PLAN: 1. Emergent exploratory laparotomy described. Surgical - Exam Vital Signs Temp Pulse Resp BP Pulse Ox 97.6 F 51 L 18 127/76 100 01/25/19 18:25 01/25/19 18:25 01/25/19 18:25 01/25/19 18:25 01/25/19 18:25 Results - Labs 01/27/19 07:47 01/27/19 03:02 Abnormal Lab Results - Last 24 Hours (Table) 01/27/19 01/27/19 01/27/19 Range/Units 02:40 03:02 07:47 WBC 13.9 H 15.8 H (3.8-10.6) k/uL Neutrophils # 11.5 H 12.3 H (1.3-7.7) k/uL Monocytes # 1.2 H (0-1.0) k/uL Carbon Dioxide 31 H (22-30) mmol/L BUN 26 H (9-20) mg/dL Glucose 129 H (74-99) mg/dL Microbiology - Last 24 Hours (Table) 01/26/19 19:38 Gram Stain - Preliminary Peritoneal Fluid Body Fluid Culture - Preliminary 01/26/19 10:50 Blood Culture - Preliminary Blood No Growth after 24 hours 01/26/19 10:38 Blood Culture - Preliminary Blood No Growth after 24 hours Diabetes panel 01/27/19 Range/Units 03:02 Sodium 138 (137-145) mmol/L Potassium 4.3 (3.5-5.1) mmol/L Chloride 102 (98-107) mmol/L Carbon Dioxide 31 H (22-30) mmol/L BUN 26 H (9-20) mg/dL Creatinine 0.90 (0.66-1.25) mg/dL Glucose 129 H (74-99) mg/dL Calcium 8.4 (8.4-10.2) mg/dL Calcium panel 01/27/19 Range/Units 03:02 Calcium 8.4 (8.4-10.2) mg/dL Phosphorus 2.5 (2.5-4.5) mg/dL Pituitary panel 01/27/19 Range/Units 03:02 Sodium 138 (137-145) mmol/L Potassium 4.3 (3.5-5.1) mmol/L Chloride 102 (98-107) mmol/L Carbon Dioxide 31 H (22-30) mmol/L BUN 26 H (9-20) mg/dL Creatinine 0.90 (0.66-1.25) mg/dL Glucose 129 H (74-99) mg/dL Calcium 8.4 (8.4-10.2) mg/dL Adrenal panel 01/27/19 Range/Units 03:02 Sodium 138 (137-145) mmol/L Potassium 4.3 (3.5-5.1) mmol/L Chloride 102 (98-107) mmol/L Carbon Dioxide 31 H (22-30) mmol/L BUN 26 H (9-20) mg/dL Creatinine 0.90 (0.66-1.25) mg/dL Glucose 129 H (74-99) mg/dL Calcium 8.4 (8.4-10.2) mg/dL Assessment and Plan (1) Strangulation of small intestine Current Visit: Yes Status: Acute Code(s): K56.2 - VOLVULUS SNOMED Code(s): 44076678 (2) Small bowel obstruction due to adhesions Current Visit: Yes Status: Acute Code(s): K56.50 - INTESTNL ADHESIONS, UNSP TO PARTIAL VERSUS COMPLETE OBST SNOMED Code(s): 755001700 (3) Peritonitis (acute) generalized Current Visit: Yes Status: Acute Code(s): K65.0 - GENERALIZED (ACUTE) PERITONITIS SNOMED Code(s): 65026064 (4) Hemoperitoneum Current Visit: Yes Status: Acute Code(s): K66.1 - HEMOPERITONEUM SNOMED Code(s): 179702486 (5) Sepsis Current Visit: Yes Status: Acute Code(s): A41.9 - SEPSIS, UNSPECIFIED ORGANISM SNOMED Code(s): 30740158 (6) Dehydration Current Visit: Yes Status: Acute Code(s): E86.0 - DEHYDRATION SNOMED Code(s): 59131879 (7) Tobacco use Current Visit: Yes Status: Acute Code(s): Z72.0 - TOBACCO USE SNOMED Code(s): 294585993 (8) Chronic back pain Current Visit: Yes Status: Acute Code(s): M54.9 - DORSALGIA, UNSPECIFIED; G89.29 - OTHER CHRONIC PAIN SNOMED Code(s): 669081702 (9) Chronic pain syndrome Current Visit: Yes Status: Acute Code(s): G89.4 - CHRONIC PAIN SYNDROME SNOMED Code(s): 099759362 (10) History of stomach ulcers Current Visit: Yes Status: Acute Code(s): Z87.19 - PERSONAL HISTORY OF OTHER DISEASES OF THE DIGESTIVE SYSTEM SNOMED Code(s): 673750079 (11) History of appendectomy Current Visit: Yes Status: Acute Code(s): Z90.49 - ACQUIRED ABSENCE OF OTHER SPECIFIED PARTS OF DIGESTIVE TRACT SNOMED Code(s): 589292929
[2019-01-26] MEDS ORDERED: ceFAZolin 2 GM in SODIUM CHLORIDE 0.9% 100 ML IVPB ONE (15:16)
[2019-01-26] MEDS ORDERED: IV FLUID CONTINUATION 1,000 ML IV ONE (15:23)
[2019-01-26] MEDS ORDERED: MIDAZOLAM (PF) 2 MG/2 ML VIAL IVP ONE (15:30)
[2019-01-26] MEDS ORDERED: ceFAZolin IN SWFI 2 GM/20 ML SYRINGE IVP ONE (15:30)
[2019-01-26] MEDS ORDERED: METOCLOPRAMIDE 5 MG/ML 2 ML VIAL IVP PRN ×2 (16:22→21:14)
[2019-01-26] MEDS ORDERED: HYDROmorphone 0.5 MG/0.5 ML SYRINGE IVP PRN (16:22)
[2019-01-26] MEDS ORDERED: ONDANSETRON 4 MG/2 ML VIAL IVP ONE (16:22)
[2019-01-26] MEDS ORDERED: DEXAMETHASONE SOD PHOSPHATE 10 MG/ML 1 ML VIAL IV ONE ×2 (16:22→16:30)
[2019-01-26] MEDS ORDERED: NALBUPHINE 10 MG/ML (1 ML AMP) IV PRN (16:25)
[2019-01-26] MEDS ORDERED: NALOXONE 0.4 MG/ML 1 ML VIAL IV PRN (16:25)
[2019-01-26] MEDS: HEPARIN SODIUM,PORCINE 5,000 UNIT/ML 1 ML VIAL SQ STA ×2 (16:35→21:35)
--- NOTE | 2019-01-26 18:12 | P.HPADDEND ---
H&P Addendum H&P Addendum Date: 01/26/19 Patient seen and evaluated. Patient on exam has peritonitis with new sepsis, white blood cell count almost 30,000 of unclear etiology. I discussed emergent exploratory laparotomy possible ostomy. All studies reviewed without definite source or cause for clincal decline. Additional consultants including infectious disease obtained. Patient had been started on Zosyn for new elevated WBC. Benefits and risks of the procedure thoroughly described.
[2019-01-26] MEDS ORDERED: SODIUM CHLORIDE 0.9% 100 ML with ceFAZolin 2,000 MG IV ONE ×2 (18:42)
[2019-01-26] MEDS ORDERED: LACTATED RINGERS 1,000 ML IV ONE ×3 (19:00→20:15)
[2019-01-26] MEDS ORDERED: HYDROcodone/APAP 5-325MG 1 EACH TAB PO PRN (21:14)
[2019-01-26] MEDS: ROPIVACAINE 400 MG, fentaNYL (PF) 1,250 MCG in SODIUM CHLORIDE 0.9% 145 ML EPIDURAL PRN (21:21)
--- NOTE | 2019-01-26 21:28 | P.OP ---
Date of Procedure: 01/26/19 Description of Procedure: SURGEON: FABIAN TOTH MD HELP DESK TEAM LEADER: NONE. PREOPERATIVE DIAGNOSIS: 1. Peritonitis 2. Sepsis with leukocytosis over 29,000 3. Chronic lower back pain 4. Tobacco abuse POSTOPERATIVE DIAGNOSIS: 1. Peritonitis 2. Sepsis with leukocytosis over 29,000 3. Chronic lower back pain 4. Tobacco abuse 5. Complete small bowel obstruction 6. Prior history of abdominal surgery, appendectomy 7. Right lower quadrant internal hernia involving greater omentum and previous appendectomy 8. Small bowel necrosis, ileum. 10. Hemoperitoneum. 11. Strangulated small bowel obstruction due to internal hernia 12. Food bezoar impaction secondary to chronic small bowel obstruction OPERATION: 1. Open exploratory laparotomy with lysis of adhesions. 2. Open small bowel enterectomy with primary anastomosis, small bowel resection ileum 60 cm 3. Evacuation of hemoperitoneum 1360 4. Abdominal lavage 3000 mL normal saline 5. Evacuation of food bezoar at ileum Anesthesia: GETA, local Estimated Blood Loss (ml): 50 Pathology: other (Small bowel enterectomy ileum, adhesive band omentum, cell cytology peritoneal fluid, aerobic and anaerobic culture peritoneal fluid) Condition: critical Disposition: floor Operative Findings: 1. Immediate bloody ascites 1360 mL evacuated from abdominal cavity 2. Small bowel necrosis, closed loop, ileum from internal hernia at right lower quadrant from an omentum adhesive band from prior open appendectomy 3. Small bowel enterectomy 60 cm with sparing of last 5 cm of terminal ileum 4. Food bezoar impaction of residual viable small bowel over 8 cm milked from small bowel 5. Anastomosis at the terminal ileum using 60 cm linear stapler, purple load reinforced 6. Abdomen irrigated with 3000 normal saline solution until clear and dry 7. Peritoneal fluid cell cytology including aerobic and aerobic cultures sent INDICATIONS: The patient is a 38-year-old male presented to see room with acute abdomen including peritonitis. He initially had a normal white count which within 24 hours jaren to almost 30,000 with peritonitis and sepsis. Emergency exploratory laparotomy with bowel resection and possible ostomy were described. Benefits and risks of the procedures were discussed. Informed consent was obtained. DESCRIPTION: The patient was brought to the operating room. An epidural was placed per anesthesia. After general induction, a Hernandez catheter was placed. The abdomen was prepped and draped in standard sterile fashion. Ioban draping was also placed. Prior to incision, a timeout protocol was confirmed with surgical team regarding patient's name including procedures to be performed. Preoperative medications were confirmed. A #10 blade was used to enter along the epigastrium and extended down to the pubis. Carefully the abdomen was entered using electro- Bovie cautery. Immediately hemoperitoneum consistent with bloody ascites over 1360 mL was drained from the abdomen. Exploration of the abdomen especially of the pelvis demonstrated necrotic small bowel consistent with the ileum from an internal hernia of the omentum from a previous open appendectomy. The adhesive band was divided. Proximal and distal to the obstruction, the small bowel was within normal limits with the exception of a palpable mass of the ileum. The small bowel was inspected from the ligament of Treitz distally where an internal hernia with acute small bowel necrosis involving the mesentery of the ileum was identified in the right lower quadrant. The internal hernia was cau sed by a defect of the greater omentum which was tethered to the right pelvis from a previous open appendectomy. The rest of the abdomen was explored where no evidence of peritoneal studding or signs of cancer was found. Next, using Enseal the internal hernia involving the greater omentum was divided. The small bowel was released and investigated confirming necrosis involving 60 cm of the bowel. The small bowel was prepared for resection with two 3-0 silk placed along the anti-mesenteric border. The proximal and distal ends of the small bowel were brought in apposition and a small bowel enterectomy was performed using Covidien tri-stapler mark staple load of 60 mm. The infarct mesentery was resected using EnSeal. The specimen was passed off and measured of 60 cm in length. Photographic imaging was obtained. The small bowel was prepared for anastomosis. An enterotomy was placed along the distal end and of the proximal ends of the divided small bowel along the antimesenteric border. A long segment food bezoar of 8 cm was evacuated from the small bowel. Viable terminal ileum over 5 cm was prepared for anastomosis. A 60 mm mark staple load was fired for zahraa-lumen. The enterotomy was closed using similar stapler load. The zahraa-lumen was widely patent. All instruments and gowns including gloves were changed after copiously irrigating the abdomen with over 3 L of warm normal saline until the aspirate was clear and dry. Hemostasis was excellent throughout the out the entire case. The transverse mesocolon including greater omentum was brought down to cover the bowel for abdominal wall closure. The abdomen was dried using towels. All sponge count was verified as correct. The nasogastric tube was palpated and adjusted along the stomach. The abdomen was closed using double stranded 0 PDS. The subcutaneous tissue was irrigated in a similar fashion. The skin incision was reapproximated using interrupted 3-0 Vicryl for the dermis along the umbilicus. Skin nj were placed for the rest of the incision. An Optifoam incisional length dressing was placed. At the end of the procedure, needle, sponge, and instrument count had been verified correct by the instructor adjunct surgical technician. The patient was sent to the postanesthesia care unit in gaurded condition. Intraoperative findings were described to the patient's family who were very pleased with the level of care. An intraoperative photograph was taken for the patient. Postoperative recovery in detail was described.
[2019-01-26] MEDS: PIPERACILLIN-TAZOBACTAM 3.375 GM in SODIUM CHLORIDE 0.9% 100 ML IVPB SCH ×2 (21:53→23:47)
[2019-01-26] MEDS: KETOROLAC 30 MG/ML 1 ML VIAL IVP SCH (23:46)
[2019-01-27] MEDS: KETOROLAC 30 MG/ML 1 ML VIAL IVP SCH ×4 (00:10→17:34)
[2019-01-27] MEDS: LACTATED RINGERS 1,000 ML IV SCH ×7 (00:30→16:51)
[2019-01-27 03:00] LABS: Basophils % (A) 0 %; Eosinophils # (A) 0.1 k/uL (0-0.7); Eosinophils % (A) 0 %; Lymphocytes # (A) 1.2 k/uL (1.0-4.8); Lymphocytes % (A) 9 %; MCH 30.2 pg (25.0-35.0); MCHC 33.8 g/dL (31.0-37.0); MCV 89.4 fL (80.0-100.0); Mean Platelet Volume 7.6; Monocytes # (A) 0.9 k/uL (0-1.0); Monocytes % (A) 6 %; Neutrophils # (A) 11.5 k/uL (1.3-7.7); Neutrophils % (A) 83 %; Platelet Count 240 k/uL (150-450); RBC 4.81 m/uL (4.30-5.90); RDW 14.4 % (11.5-15.5); WBC 13.9 k/uL (3.8-10.6)
[2019-01-27 03:01] LABS: HGB 14.5 gm/dL (13.0-17.5)
[2019-01-27 03:20] LABS: African American GFR (CKD) >90 (>60 ml/min/1.73 sqM); Anion Gap 5 mmol/L; Blood Urea Nitrogen 26 mg/dL (9-20); Calcium 8.4 mg/dL (8.4-10.2); Carbon Dioxide 31 mmol/L (22-30); Chloride 102 mmol/L (98-107); Glucose 129 mg/dL (74-99); Magnesium 1.6 mg/dL (1.6-2.3); Phosphorus 2.5 mg/dL (2.5-4.5); Potassium 4.3 mmol/L (3.5-5.1); Sodium 138 mmol/L (137-145)
[2019-01-27 03:28] LABS: INR 1.1 (<1.2); Partial Thromboplastin Time 23.4 sec (22.0-30.0); Prothrombin Time 11.5 sec (9.0-12.0)
[2019-01-27] MEDS: D5-0.45% NACL WITH KCL 20MEQ/L 1,000 ML IV SCH ×3 (05:13→15:08)
[2019-01-27] MEDS: SODIUM CHLORIDE 0.9% 1,000 ML IV SCH ×2 (05:13→07:44)
[2019-01-27] MEDS ORDERED: SODIUM CHLORIDE 0.9% 1,000 ML IV ONE (06:25)
--- NOTE | 2019-01-27 07:46 | P.PN ---
Progress Note - Text Progress Note Date: 01/27/19 Pt with some abdominal pain. B/l quadriceps weakness w/o further leg weakness. Has received ketorolac for breakthrough pain. Denies headache. Epidural inserted lower than desired due to difficulty at the desired level. POD#1 s/p exploratory laparotomy w/ SBR - increased epidural to 14 ml/hr - continue breakthrough ketorolac, dilaudid and Flushing
[2019-01-27] MEDS: MAGNESIUM SULFATE-D5W PMX 1 GM in DEXTROSE/WATER 1 100ML.BAG IVPB SCH ×4 (07:50→11:00)
[2019-01-27 08:08] LABS: Basophils % (A) 0 %; Eosinophils % (A) 0 %; HCT 41.4 % (39.0-53.0); HGB 13.7 gm/dL (13.0-17.5); Lymphocytes # (A) 1.7 k/uL (1.0-4.8); Lymphocytes % (A) 11 %; MCH 29.9 pg (25.0-35.0); MCHC 33.2 g/dL (31.0-37.0); MCV 90.1 fL (80.0-100.0); Mean Platelet Volume 7.6; Monocytes # (A) 1.2 k/uL (0-1.0); Monocytes % (A) 8 %; Neutrophils # (A) 12.3 k/uL (1.3-7.7); Neutrophils % (A) 78 %; Platelet Count 248 k/uL (150-450); RBC 4.59 m/uL (4.30-5.90); RDW 14.3 % (11.5-15.5); WBC 15.8 k/uL (3.8-10.6)
[2019-01-27] MEDS: PANTOPRAZOLE 40 MG/10 ML VIAL IVP SCH (09:05)
[2019-01-27] MEDS: PIPERACILLIN-TAZOBACTAM 3.375 GM in SODIUM CHLORIDE 0.9% 100 ML IVPB SCH ×2 (09:05→16:15)
[2019-01-27] MEDS: HEPARIN SODIUM,PORCINE 5,000 UNIT/ML 1 ML VIAL SQ SCH ×2 (09:06→20:18)
--- NOTE | 2019-01-27 10:06 | P.PN ---
Subjective Progress Note Date: 01/27/19 CHIEF COMPLAINT: Peritonitis HISTORY OF PRESENT ILLNESS: The patient is a 38-year-old male postop day 1 status post small bowel resection for strangulated small bowel obstruction. He has miraculous recovery. He is passing flatus and had a LARGE bowel movement. Overnight events also discussed with nurse including his bowel movement and tachycardia which is now resolved. Intraoperative findings reviewed in detail with patient. Overall, patient and family are pleased with the level of care. ROS: No reports of nausea and vomiting No fevers or chills. No new chest pain. No productive sputum PHYSICAL EXAM: VITAL SIGNS: Reviewed CONSTITUTIONAL: Well developed and in no acute distress. EYES: Conjuctivae without sclera icterus. Extraocular movements grossly intact. HEAD, EARS, NOSE, THROAT: Moist buccal mucosa. Head is atraumatic, normocephalic. Hears conversational speech. No nasal drainage. NECK: Supple. No thyroidomegaly. RESPIRATORY: Non-labored respirations and equal bilateral excursions. CARDIOVASCULAR: Palpable 2+ radial pulses. Regular rate. Regular rhythm. ABDOMEN: Incisions clean dry and intact. Abdominal binder present. MUSCULOSKELETAL: No gross deformity of the lower extremities noted. No clubbing. No cyanosis. SKIN: Good skin turgor. Well perfused. NEUROLOGIC: Cranial nerves I through XII grossly intact. No focal or lateralizing signs. PSYCH: Appropriate affect. Alert and oriented to person, place and time. CLINCAL LABS: White blood cell count improved from 29,000-15,000 ASSESSMENT: 1. Gangrenous small bowel obstruction PLAN: 1. Discharge instructions were reviewed including liquid diet, protein shakes. 2. Antibiotics to be discontinued upon discharge home. 4. No lifting over 4 pounds in 4 weeks to February 25 described. 5. Follow up in office in 5 days. 6. Epidural and hwang to be pulled tomorrow with tentative discharge instruc tions available. Objective - Vital Signs Vital signs: Vital Signs Temp 98.8 F 01/27/19 07:43 Pulse 92 01/27/19 07:43 Resp 16 01/27/19 07:43 BP 125/51 01/27/19 07:43 Pulse Ox 99 01/27/19 07:43 Intake & Output 01/26/19 01/27/19 01/27/19 18:59 06:59 18:59 Intake Total 1100 2700 Output Total 2700 Balance 1100 0 Weight 72.5 kg Intake: IV 1100 2700 Output: Gastric Drainage 1900 Urine 750 Estimated Blood Loss 50 Other: Voiding Method Bedside Commode # Bowel Movements 1 - Labs CBC & Chem 7: 01/27/19 07:47 01/27/19 03:02 Labs: Abnormal Lab Results - Last 24 Hours (Table) 01/27/19 01/27/19 01/27/19 Range/Units 02:40 03:02 07:47 WBC 13.9 H 15.8 H (3.8-10.6) k/uL Neutrophils # 11.5 H 12.3 H (1.3-7.7) k/uL Monocytes # 1.2 H (0-1.0) k/uL Carbon Dioxide 31 H (22-30) mmol/L BUN 26 H (9-20) mg/dL Glucose 129 H (74-99) mg/dL Assessment and Plan (1) Strangulation of small intestine Current Visit: Yes Status: Acute Code(s): K56.2 - VOLVULUS SNOMED Code(s): 86201628 (2) Small bowel obstruction due to adhesions Current Visit: Yes Status: Acute Code(s): K56.50 - INTESTNL ADHESIONS, UNSP TO PARTIAL VERSUS COMPLETE OBST SNOMED Code(s): 291138022 (3) Peritonitis (acute) generalized Current Visit: Yes Status: Acute Code(s): K65.0 - GENERALIZED (ACUTE) PERITONITIS SNOMED Code(s): 12798666 (4) Hemoperitoneum Current Visit: Yes Status: Acute Code(s): K66.1 - HEMOPERITONEUM SNOMED Code(s): 544455564 (5) Sepsis Current Visit: Yes Status: Acute Code(s): A41.9 - SEPSIS, UNSPECIFIED ORGANISM SNOMED Code(s): 67186583 (6) Dehydration Current Visit: Yes Status: Acute Code(s): E86.0 - DEHYDRATION SNOMED Code(s): 48412734
[2019-01-27] MEDS: HYDROmorphone 1 MG/ML 1 ML SYRINGE IVP PRN ×4 (12:16→23:02)
--- NOTE | 2019-01-27 12:34 | P.CONS ---
History of Present Illness - Reason for Consult Consult date: 01/27/19 Sepsis - History of Present Illness This is a 38-year-old male presented to the emergency center due to abdominal pain was sudden onset 2 days before. He also had nausea and multiple episodes of vomiting. No diarrhea or constipation. Positive bloating and distention. Patient came into [facility] emergency center for evaluation. CAT scan of abdomen and pelvis was negative for acute abdominal findings. Gallbladder mildly dilated and measures 4.5 cm. Abdominal ultrasound showed no gallstones or dilated ducts. Large gallbladder measures 4.5 x 9.6. Acute abdominal series showed dilated bowel loops within the abdomen which could be on the basis of ileus or partial obstruction. Patient continued to have significant pain and was taken to surgery by Dr. Yang status post evacuation of hemoperitoneum of 1360 ML's, small bowel resection of the ileum 60 cm with primary anastomosis, abdominal lavage and evacuation of food bezoar. The patient has been maintained on IV fluids. He has an epidural in place for pain control. He had a large bowel movement last evening and passed gas this morning. At the time of this evaluation, patient complained of increasing pain to the abdomen especially in the upper area causing pressure into the chest area. It has not been relieved with epidural and IV Dilaudid and seems to be worsening. Surgery is been updated. Patient has had significant improvement of his white count from 29-15.8. Review of Systems Constitutional: Denies anorexia, Denies chills, Denies fatigue, Denies fever, Denies lethargy, Denies malaise, Denies poor appetite, Denies weakness, Denies weight loss Ears, nose, mouth and throat: Denies dysphagia, Denies nasal congestion, Denies nasal discharge, Denies vertigo Cardiovascular: Denies chest pain, Denies dyspnea on exertion, Denies edema, Denies lightheadedness, Denies syncope Respiratory: Denies cough, Denies cough with sputum, Denies dyspnea, Denies excessive sputum, Denies hemoptysis, Denies home oxygen, Denies respiratory infections Gastrointestinal: Reports abdominal pain, Reports bloating, Denies constipation, Denies diarrhea, Denies loss of appetite, Denies nausea, Denies vomiting Genitourinary: Denies dysuria Musculoskeletal: Denies frequent falls, Denies gait dysfunction, Denies muscle weakness, Denies myalgias Integumentary: Reports wounds Neurological: Denies aphasia, Denies change in mentation, Denies change in speech, Denies seizures, Denies vertigo Psychiatric: Denies anxiety, Denies depression Past Medical History Past Medical History: No Reported History History of Any Multi-Drug Resistant Organisms: None Reported Past Surgical History: Appendectomy, Orthopedic Surgery Additional Past Surgical History / Comment(s): several back surgeries; hernia surgery, evacuation of hemoperitoneum, small bowel resection of ileum with primary anastomosis Smoking Status: Current every day smoker Additional Past Alcohol Use History / Comment(s): The patient is a smoker but quit 6 months ago. He smoked for 20 years off and on a one pack per day. He denies any marijuana, street drug or alcohol use. He lives at home with significant other. Medications and Allergies Home Medications Medication Instructions Recorded Confirmed Type Meloxicam [Mobic] 7.5 mg PO BID 01/25/19 01/26/19 History oxyCODONE-APAP 7.5-325MG [Percocet 1 tab PO Q4HR PRN 01/25/19 01/26/19 History 7.5-325 mg] traZODone HCL 25 - 50 mg PO HS PRN 01/25/19 01/26/19 History Allergies Allergy/AdvReac Type Severity Reaction Status Date / Time No Known Allergies Allergy Verified 01/26/19 00:49 Physical Exam Vitals: Vital Signs Temp Pulse Resp BP Pulse Ox 01/27/19 07:43 98.8 F 92 16 125/51 99 01/27/19 00:00 132 H 110/62 94 L 01/26/19 23:45 140 H 101/55 93 L 01/26/19 23:30 134 H 109/61 94 L 01/26/19 23:15 129 H 107/61 92 L 01/26/19 23:00 124 H 112/62 94 L 01/26/19 22:45 131 H 102/57 95 01/26/19 22:30 98.0 F 127 H 16 129/70 93 L 01/26/19 22:15 111 H 104/57 93 L 01/26/19 22:08 99 16 137/77 97 01/26/19 22:00 98.0 F 121 H 18 129/70 95 01/26/19 21:43 98 16 132/68 98 01/26/19 21:30 82 16 106/58 100 01/26/19 21:15 76 16 151/69 100 01/26/19 20:57 97.5 F L 64 17 126/55 100 01/26/19 15:17 98.8 F 74 16 160/101 94 L Intake and Output 01/26/19 01/27/19 01/27/19 22:59 06:59 14:59 Intake Total 3800 Output Total 150 2550 Balance 3650 -2550 Intake: IV 3800 Output: Gastric Drainage 1900 Urine 100 650 Estimated Blood Loss 50 Other: # Bowel Movements 1 Weight 72.5 kg Gen: This is a 46-year-old male. Patient appears to be somewhat uncomfortable in bed secondary to pain. HEENT: Head is atraumatic, normocephalic. Pupils equal, round. Sclerae is anicteric. Conjunctiva pink. Mucous members of the mouth are moist. Dentition is good order. NECK: Supple. No JVD. No lymphadenopathy. No thyromegaly. LUNGS: Diminished at the bases otherwise Clear to auscultation. No wheezes or rhonchi. No intercostal retractions. HEART: Regular rate and rhythm. No murmur. ABDOMEN: Distended. Bowel sounds are hypoactive. Generalized severe tenderness. Dressing in place to the mid abdominal wound with dried blood at the distal area. Hernandez catheter draining clear juana urine. EXTREMITIES: No pedal edema. No calf tenderness. SCDs in place. Dorsalis pedis +2 bilaterally. NEUROLOGICAL: Patient is awake, alert and oriented x3. Cranial nerves 2 through 12 are grossly intact. Results CBC & Chem 7: 01/27/19 07:47 01/27/19 03:02 Labs: Abnormal Lab Results - Last 24 Hours (Table) 01/27/19 01/27/19 01/27/19 Range/Units 02:40 03:02 07:47 WBC 13.9 H 15.8 H (3.8-10.6) k/uL Neutrophils # 11.5 H 12.3 H (1.3-7.7) k/uL Monocytes # 1.2 H (0-1.0) k/uL Carbon Dioxide 31 H (22-30) mmol/L BUN 26 H (9-20) mg/dL Glucose 129 H (74-99) mg/dL Microbiology - Last 24 Hours (Table) 01/26/19 19:38 Body Fluid Culture - Preliminary Peritoneal Fluid Assessment and Plan Plan: This is a 38-year-old male who presented to hospital with. Tinnitus, abdominal sepsis, hemoperitoneum and small bowel obstruction status post surgical intervention. He is currently on Zosyn which will be continued. Continue supportive care. Further recommendations as patient progresses. The above dictated assessment and findings were discussed with Dr. Verdin. The impression and plan of care have been directed as dictated. Mary Lu nurse practitioner acting as scribe for Dr. Verdin.
[2019-01-27] MEDS: ROPIVACAINE 400 MG, fentaNYL (PF) 1,250 MCG in SODIUM CHLORIDE 0.9% 145 ML EPIDURAL PRN (12:46)
--- NOTE | 2019-01-27 17:37 | P.DS ---
Providers Date of admission: 01/26/19 14:07 Expected date of discharge: 01/28/19 Attending physician: Sugey Yang Consults: 01/26/19 08:43 Consult Physician Stat Consulting Provider: Fortino Verdin Consult Reason/Comments: Sepsis Do you want consulting provider notified?: Yes Primary care physician: Tarik Hyman - Discharge Diagnosis(es) (1) Strangulation of small intestine Current Visit: Yes Status: Acute (2) Small bowel obstruction due to adhesions Current Visit: Yes Status: Acute (3) Peritonitis (acute) generalized Current Visit: Yes Status: Acute (4) Hemoperitoneum Current Visit: Yes Status: Acute (5) Sepsis Current Visit: Yes Status: Acute (6) Dehydration Current Visit: Yes Status: Acute (7) Tobacco use Current Visit: Yes Status: Acute (8) Chronic back pain Current Visit: Yes Status: Acute (9) Chronic pain syndrome Current Visit: Yes Status: Acute (10) History of stomach ulcers Current Visit: Yes Status: Acute (11) History of appendectomy Current Visit: Yes Status: Acute Patient Condition at Discharge: Serious Plan - Discharge Summary New Discharge Prescriptions: No Action traZODone HCL 25 - 50 mg PO HS PRN PRN Reason: Insomnia Meloxicam [Mobic] 7.5 mg PO BID oxyCODONE-APAP 7.5-325MG [Percocet 7.5-325 mg] 1 tab PO Q4HR PRN PRN Reason: Pain Discharge Medication List Meloxicam [Mobic] 7.5 mg PO BID 01/25/19 [History] oxyCODONE-APAP 7.5-325MG [Percocet 7.5-325 mg] 1 tab PO Q4HR PRN 01/25/19 [History] traZODone HCL 25 - 50 mg PO HS PRN 01/25/19 [History] Follow up Appointment(s)/Referral(s): Sugey Yang MD [STAFF PHYSICIAN] - 01/31/19 10:40 am Tarik Hyman DO [Primary Care Provider] - 1-2 days Activity/Diet/Wound Care/Special Instructions: NO lifting over 4 pounds in 4 weeks to February, . May shower. No bathtub soaks. Drink protein shakes 20 to 30 grams per serving at least twice a day. Liquid diet only upon discharge. Discharge Disposition: HOME SELF-CARE
[2019-01-27] MEDS: ONDANSETRON 4 MG/2 ML VIAL IVP PRN (21:44)
--- NOTE | 2019-01-28 00:12 | P.CON ---
Consult Note - . Consult date: 01/27/19 Assessment/Plan:: This is a 38-year-old male presented to the emergency center due to abdominal pain was sudden onset 2 days before. He also had nausea and multiple episodes of vomiting. No diarrhea or constipation. Positive bloating and distention. Patient came into [facility] emergency center for evaluation. CAT scan of abdomen and pelvis was negative for acute abdominal findings. Gallbladder mildly dilated and measures 4.5 cm. Abdominal ultrasound showed no gallstones or dilated ducts. Large gallbladder measures 4.5 x 9.6. Acute abdominal series showed dilated bowel loops within the abdomen which could be on the basis of ileus or partial obstruction. Patient continued to have significant pain and was taken to surgery by Dr. Yang status post evacuation of hemoperitoneum of 1360 ML's, small bowel resection of the ileum 60 cm with primary anastomosis, abdominal lavage and evacuation of food bezoar. The patient has been maintained on IV fluids. He has an epidural in place for pain control. He had a large bowel movement last evening and passed gas this morning. At the time of this evaluation, patient complained of increasing pain to the abdomen especially in the upper area causing pressure into the chest area. It has not been relieved with epidural and IV Dilaudid and seems to be worsening. Surgery is been updated. Patient has had significant improvement of his white count from 29-15.8. Please see the consult note is dictated by nurse practitioner Mrs. Mary Lu Pleasant 38-year-old male who relates he had the sudden onset of abdominal pain. [place] was similar when he had appendicitis. The pain became so severe he was brought to hospital for further intervention. He was seen by surgery and was taking Him somewhat urgently Rangel found evidence of hemoperitoneum as well as strangulated and necrotic piece of ileus from omental band at the site of the prior appendectomy. Other than pain the patient relates that he is doing modestly well this time. Antibiotic therapy with Zosyn is being utilized and is appropriate at this point in time. Anesthesia is adjusting his epidural to try to improve his pain control. Toradol was added which hopefully will also help his discomforts. Cultures will further help direct her course of antibiotic therapy at discharge, once there is return of bowel function should be able to transition to oral antibiotic therapy to complete his course of therapy. 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 We'll need significant protein supplementation to assist his healing as he has return of his gastrointestinal function. Negative evaluation, assessment and plan as dictated by nurse practitioner Mrs. Mary Lu.
[2019-01-28] MEDS: KETOROLAC 30 MG/ML 1 ML VIAL IVP SCH ×4 (00:32→17:23)
[2019-01-28] MEDS: PIPERACILLIN-TAZOBACTAM 3.375 GM in SODIUM CHLORIDE 0.9% 100 ML IVPB SCH ×3 (00:33→17:23)
[2019-01-28] MEDS: D5-0.45% NACL WITH KCL 20MEQ/L 1,000 ML IV SCH ×2 (01:46→10:15)
[2019-01-28] MEDS: ROPIVACAINE 400 MG, fentaNYL (PF) 1,250 MCG in SODIUM CHLORIDE 0.9% 145 ML EPIDURAL PRN ×2 (01:46→21:20)
[2019-01-28] MEDS: HYDROcodone/APAP 7.5-325MG 1 EACH TAB PO PRN ×3 (01:52→21:19)
[2019-01-28 07:38] LABS: Basophils % (A) 0 %; Eosinophils # (A) 0.1 k/uL (0-0.7); Eosinophils % (A) 1 %; HCT 33.7 % (39.0-53.0); HGB 11.3 gm/dL (13.0-17.5); Lymphocytes # (A) 1.5 k/uL (1.0-4.8); Lymphocytes % (A) 19 %; MCH 31.1 pg (25.0-35.0); MCHC 33.4 g/dL (31.0-37.0); MCV 93.2 fL (80.0-100.0); Mean Platelet Volume 7.5; Monocytes # (A) 0.5 k/uL (0-1.0); Monocytes % (A) 6 %; Neutrophils # (A) 5.4 k/uL (1.3-7.7); Neutrophils % (A) 71 %; Platelet Count 176 k/uL (150-450); RBC 3.61 m/uL (4.30-5.90); RDW 13.4 % (11.5-15.5); WBC 7.6 k/uL (3.8-10.6)
[2019-01-28 07:50] LABS: African American GFR (CKD) >90 (>60 ml/min/1.73 sqM); Anion Gap 1 mmol/L; Blood Urea Nitrogen 12 mg/dL (9-20); Calcium 7.4 mg/dL (8.4-10.2); Carbon Dioxide 24 mmol/L (22-30); Chloride 109 mmol/L (98-107); Glucose 374 mg/dL (74-99); Magnesium 1.9 mg/dL (1.6-2.3); Phosphorus 2.2 mg/dL (2.5-4.5); Sodium 134 mmol/L (137-145)
[2019-01-28] MEDS: PANTOPRAZOLE 40 MG/10 ML VIAL IVP SCH (08:54)
[2019-01-28] MEDS: HEPARIN SODIUM,PORCINE 5,000 UNIT/ML 1 ML VIAL SQ SCH ×2 (08:55→20:14)
[2019-01-28] MEDS: HYDROmorphone 1 MG/ML 1 ML SYRINGE IVP PRN ×2 (09:10→20:15)
--- NOTE | 2019-01-28 10:44 | P.PN ---
Progress Note - Text Progress Note Date: 01/28/19 The patient has some complaints of incisional pain. He still is epidural. On exam is lesser stable. His abdomen soft. He is tolerate full liquids. Patient will continue his epidural for pain management. We dysphagia discharged home the next 24-48 hours.
[2019-01-28] MEDS: SODIUM CHLORIDE 0.9% 1,000 ML IV SCH (17:22)
[2019-01-28] MEDS: LACTATED RINGERS 1,000 ML IV SCH (20:18)
[2019-01-29] MEDS: PIPERACILLIN-TAZOBACTAM 3.375 GM in SODIUM CHLORIDE 0.9% 100 ML IVPB SCH ×4 (00:22→23:30)
[2019-01-29] MEDS: HYDROmorphone 1 MG/ML 1 ML SYRINGE IVP PRN ×7 (00:31→21:58)
[2019-01-29] MEDS: HYDROcodone/APAP 7.5-325MG 1 EACH TAB PO PRN ×3 (06:06→23:30)
[2019-01-29] MEDS: SODIUM CHLORIDE 0.9% 1,000 ML IV SCH (06:16)
[2019-01-29] MEDS: LACTATED RINGERS 1,000 ML IV SCH (07:20)
[2019-01-29 07:59] LABS: Basophils % (A) 0 %; Eosinophils # (A) 0.2 k/uL (0-0.7); Eosinophils % (A) 3 %; HCT 37.1 % (39.0-53.0); HGB 12.2 gm/dL (13.0-17.5); Lymphocytes # (A) 1.5 k/uL (1.0-4.8); Lymphocytes % (A) 25 %; MCH 30.1 pg (25.0-35.0); MCHC 32.8 g/dL (31.0-37.0); MCV 91.7 fL (80.0-100.0); Mean Platelet Volume 7.8; Monocytes # (A) 0.3 k/uL (0-1.0); Monocytes % (A) 5 %; Neutrophils # (A) 3.9 k/uL (1.3-7.7); Neutrophils % (A) 65 %; Platelet Count 199 k/uL (150-450); RBC 4.05 m/uL (4.30-5.90); RDW 13.3 % (11.5-15.5)
[2019-01-29 08:14] LABS: African American GFR (CKD) >90 (>60 ml/min/1.73 sqM); Anion Gap 5 mmol/L; Blood Urea Nitrogen 11 mg/dL (9-20); Calcium 8.6 mg/dL (8.4-10.2); Carbon Dioxide 27 mmol/L (22-30); Chloride 109 mmol/L (98-107); Glucose 88 mg/dL (74-99); Potassium 4.1 mmol/L (3.5-5.1); Sodium 141 mmol/L (137-145)
[2019-01-29] MEDS: HEPARIN SODIUM,PORCINE 5,000 UNIT/ML 1 ML VIAL SQ SCH ×2 (08:51→21:58)
[2019-01-29] MEDS: PANTOPRAZOLE 40 MG TABLET PO SCH (08:51)
--- NOTE | 2019-01-29 11:03 | P.PN ---
Progress Note - Text Progress Note Date: 01/29/19 The patient feels slightly better. He still has some mild nausea. He's had poor oral intake. He was not able to walk referred for this morning. On exam his vital signs are stable. His abdomen is soft. Incision site is clean dry and intact. Status post small bowel resection. Patient will have his epidural catheter removed today. He will also have his Hernandez cath removed today. He will advance his diet slowly.
[2019-01-29] MEDS: ONDANSETRON 4 MG/2 ML VIAL IVP PRN (15:09)
[2019-01-29 18:43] LABS: Glucose,Whole Blood 102 mg/dL (75-99)
[2019-01-30] MEDS: HYDROmorphone 1 MG/ML 1 ML SYRINGE IVP PRN ×2 (03:59→08:46)
[2019-01-30] MEDS: ONDANSETRON 4 MG/2 ML VIAL IVP PRN (04:36)
[2019-01-30] MEDS: HYDROcodone/APAP 7.5-325MG 1 EACH TAB PO PRN (05:56)
[2019-01-30 08:05] LABS: Basophils % (A) 0 %; Eosinophils # (A) 0.1 k/uL (0-0.7); Eosinophils % (A) 1 %; HCT 41.5 % (39.0-53.0); HGB 13.8 gm/dL (13.0-17.5); Lymphocytes # (A) 1.4 k/uL (1.0-4.8); Lymphocytes % (A) 20 %; MCH 29.8 pg (25.0-35.0); MCHC 33.2 g/dL (31.0-37.0); MCV 89.7 fL (80.0-100.0); Mean Platelet Volume 7.4; Monocytes # (A) 0.3 k/uL (0-1.0); Monocytes % (A) 4 %; Neutrophils # (A) 4.8 k/uL (1.3-7.7); Neutrophils % (A) 72 %; Platelet Count 287 k/uL (150-450); RBC 4.62 m/uL (4.30-5.90); RDW 13.6 % (11.5-15.5); WBC 6.7 k/uL (3.8-10.6)
[2019-01-30 08:18] LABS: African American GFR (CKD) >90 (>60 ml/min/1.73 sqM); Anion Gap 10 mmol/L; Blood Urea Nitrogen 11 mg/dL (9-20); Calcium 9.2 mg/dL (8.4-10.2); Carbon Dioxide 25 mmol/L (22-30); Chloride 105 mmol/L (98-107); Glucose 97 mg/dL (74-99); Potassium 4.1 mmol/L (3.5-5.1); Sodium 140 mmol/L (137-145)
[2019-01-30] MEDS: PIPERACILLIN-TAZOBACTAM 3.375 GM in SODIUM CHLORIDE 0.9% 100 ML IVPB SCH ×2 (08:47→18:33)
[2019-01-30] MEDS: HEPARIN SODIUM,PORCINE 5,000 UNIT/ML 1 ML VIAL SQ SCH (08:47)
[2019-01-30] MEDS: PANTOPRAZOLE 40 MG TABLET PO SCH (08:47)
--- NOTE | 2019-01-30 11:27 | P.PN ---
<Janice Nova Ray - Last Filed: 01/30/19 11:07> Subjective Progress Note Date: 01/30/19 CHIEF COMPLAINT: abdominal pain HISTORY OF PRESENT ILLNESS: Patient examined at the bedside. Spouse present. Patient reports abdominal pain this morning. He is receiving [place] and IV Dilaudid. Epidural and hwang DC yesterday. Patient voiding without difficulty. Patient reports passing gas. Denies bowel movement. Reports nausea. Denies emesis. Patient ate a few bites of a banana this morning. He reports he has been ambulating and took a shower this morning. PHYSICAL EXAM: VITAL SIGNS: Reviewed. GENERAL: Well-developed in no acute distress. HEENT: No sclera icterus. Extraocular movements grossly intact. Moist buccal mucosa. Head is atraumatic, normocephalic. ABDOMEN: Nondistended. Soft. Dressing intact with shadowing present. Positive bowel sounds. NEUROLOGIC: Alert and oriented. Cranial nerves II through XII grossly intact. ASSESSMENT: 1. Abdominal pain with nausea/vomiting with clinical signs of peritonitis 2. Leukocytosis 3 Elevated lactic acid 4. History of appendectomy 5. History of ulcers per patient 6. Chronic back pain 7. Chronic opioid use secondary to chronic back pain PLAN: 1. Pain control. Discontinue Wakefield and resume home dose of Percocet. Dilaudid when necessary for breakthrough pain 2. Activity as tolerated. Patient encouraged to ambulate in the hallway today. 3. Incentive spirometry 4. Continue diet as tolerated Nurse practitioner note has been reviewed by physician. Signing provider agrees with the documented findings, assessment, and plan of care. Objective - Vital Signs Vital signs: Vital Signs Temp 98.2 F 01/30/19 08:00 Pulse 65 01/30/19 08:00 Resp 14 01/30/19 08:00 BP 160/89 01/30/19 08:00 Pulse Ox 97 01/30/19 08:00 Intake & Output 01/29/19 01/30/19 01/30/19 18:59 06:59 18:59 Intake Total 870 Output Total 4000 300 Balance -4000 570 Intake: Intake, IV Titration 870 Amount Piperacillin-Tazobactam 3 100 .375 gm In Sodium Chloride 0.9% 100 ml @ 25 mls/hr IVPB Q8HR [facility] Rx# :[id number] Sodium Chloride 0.9% 1, 770 000 ml @ 75 mls/hr IV . [id number] [facility] Rx#:[id number] Output: Urine 4000 300 Uretheral (Hwang) 1999 Other: Voiding Method Indwelling Catheter Urinal # Voids 2 - Labs CBC & Chem 7: 01/30/19 07:24 01/30/19 07:24 Labs: Abnormal Lab Results - Last 24 Hours (Table) 01/29/19 Range/Units 18:39 POC Glucose (mg/dL) 102 H (75-99) mg/dL Microbiology - Last 24 Hours (Table) 01/26/19 19:38 Gram Stain - Preliminary Peritoneal Fluid Body Fluid Culture - Preliminary 01/26/19 10:50 Blood Culture - Preliminary Blood No Growth after 72 hours 01/26/19 10:38 Blood Culture - Preliminary Blood No Growth after 72 hours <Sugey Yang N - Last Filed: 01/30/19 12:07> Objective - Vital Signs Vital signs: Vital Signs Temp 98.2 F 01/30/19 08:00 Pulse 65 01/30/19 08:00 Resp 14 01/30/19 08:00 BP 160/89 01/30/19 08:00 Pulse Ox 97 01/30/19 08:00 Intake & Output 01/29/19 01/30/19 01/30/19 18:59 06:59 18:59 Intake Total 870 Output Total 4000 300 Balance -4000 570 Intake: Intake, IV Titration 870 Amount Piperacillin-Tazobactam 3 100 .375 gm In Sodium Chloride 0.9% 100 ml @ 25 mls/hr IVPB Q8HR [facility] Rx# :[id number] Sodium Chloride 0.9% 1, 770 000 ml @ 75 mls/hr IV . [id number] [facility] Rx#:[id number] Output: Urine 4000 300 Uretheral (Hwang) 1999 Other: Voiding Method Indwelling Catheter Urinal # Voids 2 - Labs CBC & Chem 7: 01/30/19 07:24 01/30/19 07:24 Labs: Abnormal Lab Results - Last 24 Hours (Table) 01/29/19 Range/Units 18:39 POC Glucose (mg/dL) 102 H (75-99) mg/dL Microbiology - Last 24 Hours (Table) 01/26/19 19:38 Gram Stain - Preliminary Peritoneal Fluid Body Fluid Culture - Preliminary 01/26/19 10:50 Blood Culture - Preliminary Blood No Growth after 72 hours 01/26/19 10:38 Blood Culture - Preliminary Blood No Growth after 72 hours Assessment and Plan (1) Strangulation of small intestine Current Visit: Yes Status: Acute Code(s): K56.2 - VOLVULUS SNOMED Code(s): 51309930 (2) Small bowel obstruction due to adhesions Current Visit: Yes Status: Acute Code(s): K56.50 - INTESTNL ADHESIONS, UNSP TO PARTIAL VERSUS COMPLETE OBST SNOMED Code(s): 340006796 (3) Peritonitis (acute) generalized Current Visit: Yes Status: Acute Code(s): K65.0 - GENERALIZED (ACUTE) PERITONITIS SNOMED Code(s): 44243103 (4) Hemoperitoneum Current Visit: Yes Status: Acute Code(s): K66.1 - HEMOPERITONEUM SNOMED Code(s): 973159142 (5) Sepsis Current Visit: Yes Status: Acute Code(s): A41.9 - SEPSIS, UNSPECIFIED ORGANISM SNOMED Code(s): 08897963 (6) Dehydration Current Visit: Yes Status: Acute Code(s): E86.0 - DEHYDRATION SNOMED Code(s): 90787809 (7) Tobacco use Current Visit: Yes Status: Acute Code(s): Z72.0 - TOBACCO USE SNOMED Code(s): 522631083 (8) Chronic back pain Current Visit: Yes Status: Acute Code(s): M54.9 - DORSALGIA, UNSPECIFIED; G89.29 - OTHER CHRONIC PAIN SNOMED Code(s): 526245446 (9) Chronic pain syndrome Current Visit: Yes Status: Acute Code(s): G89.4 - CHRONIC PAIN SYNDROME SNOMED Code(s): 600549834 (10) History of stomach ulcers Current Visit: Yes Status: Acute Code(s): Z87.19 - PERSONAL HISTORY OF OTHER DISEASES OF THE DIGESTIVE SYSTEM SNOMED Code(s): 046163083 (11) History of appendectomy Current Visit: Yes Status: Acute Code(s): Z90.49 - ACQUIRED ABSENCE OF OTHER SPECIFIED PARTS OF DIGESTIVE TRACT SNOMED Code(s): 831601159
--- NOTE | 2019-01-30 12:12 | P.DS ---
Providers Date of admission: 01/26/19 14:07 Expected date of discharge: 01/30/19 Attending physician: Sugey Yang Consults: 01/26/19 08:43 Consult Physician Stat Consulting Provider: Fortino Verdin Reason/Comments: Sepsis Do you want consulting provider notified?: Yes Primary care physician: Tarik Hyman - Discharge Diagnosis(es) (1) Strangulation of small intestine Current Visit: Yes Status: Acute (2) Small bowel obstruction due to adhesions Current Visit: Yes Status: Acute (3) Peritonitis (acute) generalized Current Visit: Yes Status: Acute (4) Hemoperitoneum Current Visit: Yes Status: Acute (5) Sepsis Current Visit: Yes Status: Acute (6) Dehydration Current Visit: Yes Status: Acute (7) Tobacco use Current Visit: Yes Status: Acute (8) Chronic back pain Current Visit: Yes Status: Acute (9) Chronic pain syndrome Current Visit: Yes Status: Acute (10) History of stomach ulcers Current Visit: Yes Status: Acute (11) History of appendectomy Current Visit: Yes Status: Acute Hospital Course: The patient is a 38-year-old male who presented acutely with abdominal pain. Initial diagnostic studies were unremarkable. During his hospitalization he developed peritonitis including leukocytosis and sepsis. He was brought to the operating room with findings of small bowel strangulation. He underwent small bowel enterectomy 60 cm. Immediately postop he was passing flatus and had bowel movements. Secondary to his chronic abdominal pain, pain management was managed using epidural. He has at home Percocets including Mobic. 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 All discharge instructions were reviewed. Dressings were changed with explicit instructions to be removed in 4 days. Follow-up in the office in one week. No lifting restrictions over 4 pounds in 4 weeks beyond February 23 also reviewed. Diet as tolerated also described. Pertinent Studies: CT of the abdomen and pelvis unremarkable. Abdominal x-ray consistent with bowel obstruction. Procedures: Exploratory laparotomy with small bowel enterectomy, drainage of hemoperitoneum for strangulated bowel Patient Condition at Discharge: Stable Plan - Discharge Summary New Discharge Prescriptions: No Action traZODone HCL 25 - 50 mg PO HS PRN PRN Reason: Insomnia Meloxicam [Mobic] 7.5 mg PO BID oxyCODONE-APAP 7.5-325MG [Percocet 7.5-325 mg] 1 tab PO Q4HR PRN PRN Reason: Pain Discharge Medication List Meloxicam [Mobic] 7.5 mg PO BID 01/25/19 [History] oxyCODONE-APAP 7.5-325MG [Percocet 7.5-325 mg] 1 tab PO Q4HR PRN 01/25/19 [History] traZODone HCL 25 - 50 mg PO HS PRN 01/25/19 [History] Follow up Appointment(s)/Referral(s): Tarik Hyman DO [Primary Care Provider] - 1-2 days Sugey Yang MD [STAFF PHYSICIAN] - 02/07/19 10:40 am Patient Instructions/Handouts: Bowel Resection (DC), Peritonitis (DC) Activity/Diet/Wound Care/Special Instructions: NO lifting over 4 pounds in 4 weeks to February, . December shower. No bathtub soaks. Drink protein shakes 20 to 30 grams per serving at least twice a day. Liquid diet only upon discharge. PLEASE USE YOUR CURRENT PAIN MEDICATIONS Discharge Disposition: HOME SELF-CARE
[2019-01-30 13:06] LABS: Hemoglobin A1C 5.2 % (4.0-6.0)
[2019-01-30] MEDS: oxyCODONE-APAP 7.5-325MG 1 EACH TAB PO PRN ×2 (14:28→18:32)
[2019-01-30 18:19] VITALS: BP 142/80; PULSE 57; RESP 12; TEMP 98.9
--- NOTE | 2019-01-31 00:17 | P.PN ---
Subjective Progress Note Date: 01/30/19 This is a 38-year-old male presented to the emergency center due to abdominal pain was sudden onset 2 days before. He also had nausea and multiple episodes of vomiting. No diarrhea or constipation. Positive bloating and distention. Patient came into [facility] emergency center for evaluation. CAT scan of abdomen and pelvis was negative for acute abdominal findings. Gallbladder mildly dilated and measures 4.5 cm. Abdominal ultrasound showed no gallstones or dilated ducts. Large gallbladder measures 4.5 x 9.6. Acute abdominal series showed dilated bowel loops within the abdomen which could be on the basis of ileus or partial obstruction. Patient continued to have significa nt pain and was taken to surgery by Dr. Yang status post evacuation of hemoperitoneum of 1360 ML's, small bowel resection of the ileum 60 cm with primary anastomosis, abdominal lavage and evacuation of food bezoar. The patient has been maintained on IV fluids. He has an epidural in place for pain control. He had a large bowel movement last evening and passed gas this morning. At the time of this evaluation, patient complained of increasing pain to the abdomen especially in the upper area causing pressure into the chest area. It has not been relieved with epidural and IV Dilaudid and seems to be worsening. Surgery is been updated. Patient has had significant improvement of his white count from 29-15.8. 01/30/2019 patient is now had marked improvement. Pain is much better. Nausea and emesis resolved. He is passing flatus. He's been able to eat some protein meals. His appetite somewhat poor but improved. He does have chronic pain and is concerned about his pain management. Objective - Vital Signs Vital signs: Vital Signs Temp 98.9 F 01/30/19 16:00 Pulse 57 L 01/30/19 16:00 Resp 12 01/30/19 16:00 BP 142/80 01/30/19 16:00 Pulse Ox 98 01/30/19 16:00 Intake & Output 01/30/19 01/30/19 01/31/19 06:59 18:59 06:59 Intake Total 870 1100 Output Total 300 Balance 570 1100 Intake: Intake, IV Titration 870 100 Amount Piperacillin-Tazobactam 3 100 100 .375 gm In Sodium Chloride 0.9% 100 ml @ 25 mls/hr IVPB Q8HR [facility] Rx# :[id number] Sodium Chloride 0.9% 1, 770 000 ml @ 75 mls/hr IV . [id number] [facility] Rx#:[id number] Oral 1000 Output: Urine 300 Other: Voiding Method Urinal # Voids 2 1 # Bowel Movements 1 - Exam Gen: This is a 46-year-old male. Patient appears to be somewhat uncomfortable in bed secondary to pain. HEENT: Head is atraumatic, normocephalic. Pupils equal, round. Sclerae is anicteric. Conjunctiva pink. Mucous members of the mouth are moist. Dentition is good order. NECK: Supple. No JVD. No lymphadenopathy. No thyromegaly. LUNGS: Diminished at the bases otherwise Clear to auscultation. No wheezes or rhonchi. No intercostal retractions. HEART: Regular rate and rhythm. No murmur. ABDOMEN: . Bowel sounds are easily heard, the dressing has been changed without drainage at this time. Abdomen is much less distended and less tender EXTREMITIES: No pedal edema. No calf tenderness. SCDs in place. Dorsalis pedis +2 bilaterally. NEUROLOGICAL: Patient is awake, alert and oriented x3. Cranial nerves 2 through 12 are grossly intact. - Labs CBC & Chem 7: 01/30/19 07:24 01/30/19 07:24 Labs: Microbiology - Last 24 Hours (Table) 01/26/19 10:50 Blood Culture - Preliminary Blood No Growth after 96 hours 01/26/19 10:38 Blood Culture - Preliminary Blood No Growth after 96 hours 01/26/19 19:38 Gram Stain - Preliminary Peritoneal Fluid Body Fluid Culture - Preliminary Laboratory Results WBC 6.7 k/uL (3.8-10.6) 01/30/19 07:24 RBC 4.62 m/uL (4.30-5.90) 01/30/19 07:24 Hgb 13.8 gm/dL (13.0-17.5) 01/30/19 07:24 Hct 41.5 % (39.0-53.0) 01/30/19 07:24 MCV 89.7 fL (80.0-100.0) 01/30/19 07:24 MCH 29.8 pg (25.0-35.0) 01/30/19 07:24 MCHC 33.2 g/dL (31.0-37.0) 01/30/19 07:24 RDW 13.6 % (11.5-15.5) 01/30/19 07:24 Plt Count 287 k/uL (150-450) 01/30/19 07:24 Neutrophils % 72 % 01/30/19 07:24 Neutrophils % (Manual) 91 % 01/26/19 06:55 Band Neutrophils % 2 % 01/26/19 06:55 Lymphocytes % 20 % 01/30/19 07:24 Lymphocytes % (Manual) 1 % 01/26/19 06:55 Monocytes % 4 % 01/30/19 07:24 Monocytes % (Manual) 6 % 01/26/19 06:55 Eosinophils % 1 % 01/30/19 07:24 Basophils % 0 % 01/30/19 07:24 Neutrophils # 4.8 k/uL (1.3-7.7) 01/30/19 07:24 Neutrophils # (Manual) 27.30 k/uL (1.3-7.7) H 01/26/19 06:55 Lymphocytes # 1.4 k/uL (1.0-4.8) 01/30/19 07:24 Lymphocytes # (Manual) 0.29 k/uL (1.0-4.8) L 01/26/19 06:55 Monocytes # 0.3 k/uL (0-1.0) 01/30/19 07:24 Monocytes # (Manual) 1.76 k/uL (0-1.0) H 01/26/19 06:55 Eosinophils # 0.1 k/uL (0-0.7) 01/30/19 07:24 Basophils # 0.0 k/uL (0-0.2) 01/30/19 07:24 Nucleated RBCs 0 /100 WBC (0-0) 01/26/19 06:55 Manual Slide Review Performed 01/26/19 06:55 RBC Morphology Normal 01/26/19 06:55 PT 11.5 sec (9.0-12.0) 01/27/19 03:02 INR 1.1 (<1.2) 01/27/19 03:02 APTT 23.4 sec (22.0-30.0) 01/27/19 03:02 Sodium 140 mmol/L (137-145) 01/30/19 07:24 Potassium 4.1 mmol/L (3.5-5.1) 01/30/19 07:24 Chloride 105 mmol/L (98-107) 01/30/19 07:24 Carbon Dioxide 25 mmol/L (22-30) 01/30/19 07:24 Anion Gap 10 mmol/L 01/30/19 07:24 BUN 11 mg/dL (9-20) 01/30/19 07:24 Creatinine 0.70 mg/dL (0.66-1.25) 01/30/19 07:24 Est GFR (CKD-EPI)AfAm >90 (>60 ml/min/1.73 sqM) 01/30/19 07:24 Est GFR (CKD-EPI)NonAf >90 (>60 ml/min/1.73 sqM) 01/30/19 07:24 Glucose 97 mg/dL (74-99) 01/30/19 07:24 POC Glucose (mg/dL) 102 mg/dL (75-99) H 01/29/19 18:39 POC Glu Director Of Public Safety ID Michelle Hoffman 01/29/19 18:[address] Glu mg/dL 103 01/29/19 07:28 Hemoglobin A1c 5.2 % (4.0-6.0) 01/29/19 07:28 Lactic Ac Sepsis Rflx Y 01/26/19 00:46 Plasma Lactic Acid Mohan 1.9 mmol/L (0.7-2.0) 01/27/19 02:40 Calcium 9.2 mg/dL (8.4-10.2) 01/30/19 07:24 Phosphorus 2.2 mg/dL (2.5-4.5) L 01/28/19 07:03 Magnesium 1.9 mg/dL (1.6-2.3) 01/28/19 07:03 Total Bilirubin 0.7 mg/dL (0.2-1.3) 01/26/19 06:55 AST 24 U/L (17-59) 01/26/19 06:55 ALT 26 U/L (21-72) 01/26/19 06:55 Alkaline Phosphatase 69 U/L (38-126) 01/26/19 06:55 Creatine Kinase 191 U/L (55-170) H 01/25/19 19:03 Troponin I <0.012 ng/mL (0.000-0.034) 01/26/19 00:13 Total Protein 7.2 g/dL (6.3-8.2) 01/26/19 06:55 Albumin 4.6 g/dL (3.5-5.0) 01/26/19 06:55 Amylase 42 U/L (30-110) 01/26/19 00:13 Lipase 59 U/L (23-300) 01/26/19 06:55 Urine Color Light Yellow 01/26/19 00:13 Urine Appearance Clear (Clear) 01/26/19 00:13 Urine pH 7.0 (5.0-8.0) 01/26/19 00:13 Ur Specific Conway >1.050 (1.001-1.035) H 01/26/19 00:13 Urine Protein Trace (Negative) H 01/26/19 00:13 Urine Glucose (UA) Trace (Negative) H 01/26/19 00:13 Urine Ketones 2+ (Negative) H 01/26/19 00:13 Urine Blood Negative (Negative) 01/26/19 00:13 Urine Nitrite Negative (Negative) 01/26/19 00:13 Urine Bilirubin Negative (Negative) 01/26/19 00:13 Urine Urobilinogen <2.0 mg/dL (<2.0) 01/26/19 00:13 Ur Leukocyte Esterase Negative (Negative) 01/26/19 00:13 Urine Mucus Rare /hpf (None) H 01/25/19 19:35 Urine Yeast (Budding) Many /hpf (None) H 01/25/19 19:35 Urine Opiates Screen Detected (NotDetected) H 01/25/19 20:36 Ur Oxycodone Screen Detected (NotDetected) H 01/25/19 20:36 Urine Methadone Screen Not Detected (NotDetected) 01/25/19 20:36 Ur Propoxyphene Screen Not Detected (NotDetected) 01/25/19 20:36 Ur Barbiturates Screen Not Detected (NotDetected) 01/25/19 20:36 U Tricyclic Antidepress Not Detected (NotDetected) 01/25/19 20:36 Ur Phencyclidine Scrn Not Detected (NotDetected) 01/25/19 20:36 Ur Amphetamines Screen Not Detected (NotDetected) 01/25/19 20:36 U Methamphetamines Scrn Not Detected (NotDetected) 01/25/19 20:36 U Benzodiazepines Scrn Not Detected (NotDetected) 01/25/19 20:36 Urine Cocaine Screen Not Detected (NotDetected) 01/25/19 20:36 U Marijuana (THC) Screen Not Detected (NotDetected) 01/25/19 20:36 Blood Type B Positive 01/27/19 03:02 Blood Type Confirm B Positive 01/27/19 03:45 Blood Type Recheck CABO Indicated 01/27/19 03:02 Antibody Screen NEGATIVE 01/27/19 03:02 Spec Expiration Date 01/30/2019230101/27/19 03:02 Microbiology 01/26/19 10:50 Blood Blood Culture - Preliminary No Growth after 96 hours 01/26/19 10:38 Blood Blood Culture - Preliminary No Growth after 96 hours 01/26/19 19:38 Peritoneal Fluid Gram Stain - Preliminary 01/26/19 19:38 Peritoneal Fluid Body Fluid Culture - Preliminary Assessment and Plan (1) Chronic back pain Status: Acute Code(s): M54.9 - DORSALGIA, UNSPECIFIED; G89.29 - OTHER CHRONIC PAIN SNOMED Code(s): 360414892 (2) Hemoperitoneum Narrative/Plan: Pleasant 38-year-old male who relates he had the sudden onset of abdominal pain. Ranjeet was similar when he had appendicitis. The pain became so severe he was brought to hospital for further intervention. He was seen by surgery and was taking Him somewhat urgently Rangel found evidence of hemoperitoneum as well as strangulated and necrotic piece of ileus from omental band at the site of the prior appendectomy. Other than pain the patient relates that he is doing modestly well this time. Antibiotic therapy with Zosyn is being utilized and is appropriate at this point in time. Anesthesia is adjusting his epidural to try to improve his pain control. Toradol was added which hopefully will also help his discomforts. Cultures will further help direct her course of antibiotic therapy at discharge, once there is return of bowel function should be able to transition to oral antibiotic therapy to complete his course of therapy. 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 We'll need significant protein supplementation to assist his healing as he has return of his gastrointestinal function. 01/30/2019 reveals the patient does not be much improved. Fevers have improved. Leukocytosis has improved. Appetite is improving but certainly not optimal. He is having no nausea or emesis with what he is ingesting. The patient is ready for discharge to home. Given his significant ongoing pain utilize ibuprofen 600 mg 4 times a day to be used in conjunction with his routine pain medications for the next her period of time to try to improve his pain management. He understands that he needs to take ibuprofen with food or a protein drink. We discussed the importance of protein supplements at this point time if he has no appetite ensure that he has adequate protein intake to allow his healing. He will complete 3 further days of Augmentin for the completion of course of antibiotic therapy given his complex abdominal findings. Status: Acute Code(s): K66.1 - HEMOPERITONEUM SNOMED Code(s): 701591683
== END 2019-01-30 18:39 | disposition home or self-care (01) | DRG 853 ==
LOC: EC 18:21 → 1SOBS 22:47 → OBSVTOIN 01-26 14:07 → 4SSUR 01-26 15:51
PROVIDERS: ADMIT Surgery Plastic and Reconstructive Surgery; ATTEND Surgery Plastic and Reconstructive Surgery
PROC: 0DTB0ZZ Resection of Ileum, Open Approach (ICD-10-PCS; principal; 2019-01-26 18:18)
DX: A41.9 Sepsis, unspecified organism (principal); K55.021 Focal (segmental) acute infarction of small intestine; K65.0 Generalized (acute) peritonitis; K66.1 Hemoperitoneum; K56.52 Intestinal adhesions [bands] with complete obstruction; R18.8 Other ascites; M54.5 Low back pain; G89.4 Chronic pain syndrome; E86.0 Dehydration; F17.220 Nicotine dependence, chewing tobacco, uncomplicated; T18.3XXA Foreign body in small intestine, initial encounter; Z90.49 Acquired absence of other specified parts of digestive tract; Z87.11 Personal history of peptic ulcer disease; Z79.1 Long term (current) use of non-steroidal anti-inflammatories (NSAID); Z79.891 Long term (current) use of opiate analgesic; Z88.5 Allergy status to narcotic agent; Z83.3 Family history of diabetes mellitus
CPT/HCPCS: 36415; 74022; 74177; 76705; 80048; 80053; 80306; 81001; 81003; 82150; 82550; 83036; 83605; 83690; 83735; 84100; 84484; 85025; 85610; 85730; 86850; 86900; 86901; 87040; 87070; 87205; 88108; 88305; 88307; 93005; 96361; 96372; 96374; 96375; 96376; 99285

== ENCOUNTER 2019-03-03 20:22 | Emergency (ER) | payer BC ==
[2019-03-03 20:41] VITALS: PULSE 82; RESP 18
--- NOTE | 2019-03-03 22:50 | P.GSCN ---
History of Present Illness Consult date: 03/03/19 Reason for Consult: Urinary retention Requesting physician: Fletcher Shaver History of present illness: The patient is a 38-year-old white male who underwent an exploratory laparotomy with small bowel resection last month for necrotic small bowel secondary to internal herniation. He had an indwelling Hernandez catheter at that time. He states that removal of the catheter was painful. He has experienced weakening of his urinary stream, and today was unable to void. He presented to the emergency room. Attempts by the ER staff to place a Hernandez catheter were unsuccessful, as obstruction was met within the distal urethra. I am consulted for this reason. The patient has a history of one prior kidney stone, which he passed. He believes he may have had a bladder infection in the past. He denies any prior history of urethral stricture disease. Review of Systems - Constitutional Denies chills, Denies fever Past Medical History Past Medical History: No Reported History History of Any Multi-Drug Resistant Organisms: None Reported Past Surgical History: Appendectomy, Orthopedic Surgery Additional Past Surgical History / Comment(s): several back surgeries; hernia surgery, evacuation of hemoperitoneum, small bowel resection of ileum with primary anastomosis Past Psychological History: No Psychological Hx Reported Smoking Status: Current every day smoker Medications and Allergies Home Medications Medication Instructions Recorded Confirmed Type oxyCODONE-APAP 7.5-325MG [Percocet 1 tab PO Q4HR PRN 01/25/19 03/03/19 History 7.5-325 mg] Tamsulosin [Flomax] 0.4 mg PO DAILY 03/03/19 03/03/19 History Allergies Allergy/AdvReac Type Severity Reaction Status Date / Time No Known Allergies Allergy Verified 03/03/19 21:54 Surgical - Exam Vital Signs Temp Pulse Resp BP Pulse Ox 98.8 F 82 18 143/107 100 03/03/19 20:38 03/03/19 20:38 03/03/19 20:38 03/03/19 20:38 03/03/19 20:38 - General well developed, well nourished, no distress - Respiratory normal respiratory effort - Abdomen Abdomen: soft, non tender, no guarding, no rigid, no rebound - Genitourinary normal penis with no external lesions, testicles non-tender - Psychiatric oriented to time, oriented to person, oriented to place, speech is normal, memory intact Assessment and Plan (1) Retention of urine Current Visit: Yes Status: Acute Code(s): R33.9 - RETENTION OF URINE, UNSPECIFIED SNOMED Code(s): 488681830 (2) 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 2% lidocaine jelly was administered intraurethrally. Malou sounds were used to dilate the stricture at the fossa navicularis from 10-Romanian to 16-Romanian. Placement of the 10-Romanian sound was particularly difficult, and placement of the 12-Romanian sound was somewhat less difficult. The 14-Romanian and 16-Romanian sounds were passed without difficulty, but the stricture appeared to be dense and the patient experienced significant discomfort. In view of this, further dilation was not performed. A 12-Romanian silicone Hernandez catheter was placed, with return of 1 L of clear yellow urine. I have recommended to the patient that he be discharged home with the Hernandez catheter. He will follow up with me early next week, at which time the Hernandez catheter will be removed. He will be advised to maintain patency of the distal urethra using a meatal dilator, but he was advised of the possibility that he may require a urethroplasty for definitive treatment of this problem. Time with Patient: Greater than 30
--- NOTE | 2019-03-04 00:07 | ED ---
General Adult HPI - General Chief complaint: Urogenital Stated complaint: Urogenital Source: patient, family, RN notes reviewed Mode of arrival: ambulatory Limitations: no limitations - History of Present Illness Initial comments: Chief complaint history of present illness a 38-year-old male here with his . The patient reports that approximately one month ago he had surgery for intestinal obstruction. On discharge he will was sent home with a Hernandez catheter that was in place for 6 days. It was removed approximately 2 and half weeks ago. Since then she's had decreasing urine strain. The last day or 2 he's had difficulty urinating even small amounts. With great discomfort at the tip of the penis. Denies fever or chills. - Related Data Home Medications Medication Instructions Recorded Confirmed oxyCODONE-APAP 7.5-325MG [Percocet 1 tab PO Q4HR PRN 01/25/19 03/03/19 7.5-325 mg] Tamsulosin [Flomax] 0.4 mg PO DAILY 03/03/19 03/03/19 Allergies Allergy/AdvReac Type Severity Reaction Status Date / Time No Known Allergies Allergy Verified 03/03/19 21:54 Review of Systems ROS Statement: Those systems with pertinent positive or pertinent negative responses have been documented in the HPI. Review of systems no other complaints other than difficulty hearing urinating. Past problems include appendectomy and recent intestinal obstruction family history noncontributory no known ALLERGIES. ROS Other: All systems not noted in ROS Statement are negative. Past Medical History Past Medical History: No Reported History History of Any Multi-Drug Resistant Organisms: None Reported Past Surgical History: Appendectomy, Orthopedic Surgery Additional Past Surgical History / Comment(s): several back surgeries; hernia surgery, evacuation of hemoperitoneum, small bowel resection of ileum with primary anastomosis Past Psychological History: No Psychological Hx Reported Smoking Status: Current every day smoker General Exam - General Exam Comments Initial Comments: Physical examination; vital signs are stable. The patient presents with difficulty urinating for several days getting progressively worse. Examination of the penis appears normal. Nurse's unable to pass even a small catheter. I tried to pass even a 12-Slovak Hernandez catheter without results. On- call urologist, Dr. Esteban was called. He came and saw the patient and did a dilatation. Patient was discharged with a 12-Slovak Hernandez catheter. Patient follow-up with Dr. Esteban as arranged Limitations: no limitations Course Vital Signs 03/03/19 20:38 Temperature 98.8 F Pulse Rate 82 Respiratory 18 Rate Blood Pressure 143/107 O2 Sat by Pulse 100 Oximetry Medical Decision Making - Medical Decision Making Medical decision making; patient is unable to urinate after having had Hernandez cath removed approximately 2 weeks ago. He had developed a stricture in the last several days as needed dilating by the urologist. Disposition Clinical Impression: Urethral stricture unspecified Disposition: HOME SELF-CARE Is patient prescribed a controlled substance at d/c from ED?: No Referrals: Tarik Hyman DO [Primary Care Provider] - 1-2 days Time of Disposition: 00:07
[2019-03-04 00:26] VITALS: BP 148/79; TEMP 97.9
== END 2019-03-04 00:26 | disposition home or self-care (01) ==
LOC: EC 20:22
DX: N99.115 Postprocedural fossa navicularis urethral stricture (principal); F17.200 Nicotine dependence, unspecified, uncomplicated; Z79.899 Other long term (current) drug therapy
CPT/HCPCS: 51798; 53600; 99284

== ENCOUNTER 2019-03-17 06:20 | Day surgery (SDC) | payer BC ==
--- NOTE | 2019-03-08 06:58 | P.GSHP ---
History of Present Illness H&P Date: 03/08/19 Chief Complaint: Urethral stricture The patient is a 38-year-old white male who underwent an exploratory laparotomy with small bowel resection last month for necrotic small bowel secondary to internal herniation. He had an indwelling Hernandez catheter at that time. He states that removal of the catheter was painful. He has experienced weakening of his urinary stream, and developed urinary retention. He presented to the emergency room, and attempts by the ER staff to place a Hernandez catheter were unsuccessful, as obstruction was met within the distal urethra. I dilated a fossa navicularis urethral stricture and placed a 12 Kyrgyz Hernandez catheter. The patient has a history of one prior kidney stone, which he passed. He believes he may have had a bladder infection in the past. He denies any prior history of urethral stricture disease. - Constitutional Constitutional: Denies chills, Denies fever - Cardiovascular Cardiovascular: Denies chest pain - Respiratory Respiratory: Denies dyspnea - Genitourinary (Female) Genitourinary: Reports difficulty voiding Past Medical History Past Medical History: No Reported History History of Any Multi-Drug Resistant Organisms: None Reported Past Surgical History: Appendectomy, Orthopedic Surgery Additional Past Surgical History / Comment(s): several back surgeries; hernia surgery, evacuation of hemoperitoneum, small bowel resection of ileum with prim tara anastomosis Past Psychological History: No Psychological Hx Reported Smoking Status: Current every day smoker Medications and Allergies Home Medications Medication Instructions Recorded Confirmed Type oxyCODONE-APAP 7.5-325MG [Percocet 1 tab PO Q4HR PRN 01/25/19 03/03/19 History 7.5-325 mg] Tamsulosin [Flomax] 0.4 mg PO DAILY 03/03/19 03/03/19 History Allergies Allergy/AdvReac Type Severity Reaction Status Date / Time No Known Allergies Allergy Verified 03/03/19 21:54 Surgical - Exam - General well developed, well nourished, no distress - Respiratory normal respiratory effort, clear to auscultation - Cardiovascular Rhythm: regular Abnormal Heart Sounds: no systolic murmur, no diastolic murmur, no rub, no S3 Gallop, no S4 Gallop, no click, no other - Abdomen Abdomen: soft, non tender, no guarding, no rigid, no rebound - Genitourinary normal penis with no external lesions, testicles non-tender - Psychiatric oriented to time, oriented to person, oriented to place, speech is normal, memory intact Assessment and Plan (1) 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 The rationale for the procedure was discussed with the patient. Risks include anesthesia, bleeding, infection, sprayed urinary stream, and recurrent stricture.
[2019-03-15 09:06] VITALS: BMI 25.1
[~2019-03-17 06:20] MED LIST: DEXAMETHASONE SOD PHOSPHATE 10 MG/ML 1 ML VIAL IV ONE; KETOROLAC 30 MG/ML 1 ML VIAL IVP SCH; LACTATED RINGERS 1,000 ML IV SCH; LIDOCAINE 1% 20 ML VIAL (10MG/ML) FOR IV START INTRADERMA PRN; ONDANSETRON 4 MG/2 ML VIAL IVP ONE; ONDANSETRON 4 MG/2 ML VIAL IVP PRN
[2019-03-17] MEDS ORDERED: LIDOCAINE 1% INJ 10MG/ML (20 ML MDV) ONE (07:21)
[2019-03-17] MEDS ORDERED: PROPOFOL 10 MG/ML 20 ML VIAL IV ONE (07:21)
[2019-03-17] MEDS ORDERED: fentaNYL (PF) 50 MCG/ML 2 ML AMP ONE (07:21)
[2019-03-17] MEDS ORDERED: MIDAZOLAM 2 MG/2 ML VIAL ONE (07:21)
[2019-03-17 08:13] VITALS: TEMP 97.3
--- NOTE | 2019-03-17 08:16 | P.OP ---
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 He had an indwelling Hernandez catheter at that time. He states that removal of the catheter was painful. He has experienced weakening of his urinary stream, and developed urinary retention. He presented to the emergency room, and attempts by the ER staff to place a Hernandez catheter were unsuccessful, as obstruction was met within the distal urethra. I dilated a fossa navicularis urethral stricture and placed a 12 Irish Hernandez catheter. Since the catheter was removed, his stream has diminished. The patient has a history of one prior kidney stone, which he passed. He believes he may have had a bladder infection in the past. He denies any prior history of urethral stricture disease. Operative Findings: Fossa navicularis stricture, approximately 10-Irish caliber. Description of Procedure: The patient was taken to the operating room and placed in the dorsolithotomy position, with his legs supported in Levon stirrups. The external genitalia was prepped and draped sterilely. A 10-Irish Lee sound was passed into the urethra. This was snug at the level of the fossa navicularis. The urethra was successively dilated up to 16-Irish. The Matthew urethrotome was then advanced several centimeters beyond the fossa navicularis, and this was used to incise the urethra to 22-Irish. The 0 lens was used to advance the cystoscope through the urethra and into the bladder under direct vision. The prostate revealed a bilobar configuration, non-obstructing. The bladder was examined in its entirety. Both ureteral orifices were of normal anatomic location and configuration, and clear urine effluxed from both. No tumors or foreign bodies were seen. The bladder was not trabeculated. The cystoscope was removed, and an 18-Irish Hernandez catheter was placed. The return was clear. The patient tolerated the procedure well was taken to the recovery room in stable condition.
[2019-03-17 08:17] VITALS: RESP 16
[2019-03-17] MEDS: HYDROmorphone 0.5 MG/0.5 ML SYRINGE IVP PRN ×2 (08:30→08:33)
[2019-03-17 09:04] VITALS: PULSE 65
[2019-03-17 09:26] VITALS: BP 118/69
== END 2019-03-17 09:38 | disposition home or self-care (01) ==
LOC: OR 06:20
PROVIDERS: ATTEND Urology
DX: N99.115 Postprocedural fossa navicularis urethral stricture (principal); Z87.442 Personal history of urinary calculi; Z90.49 Acquired absence of other specified parts of digestive tract; Z98.0 Intestinal bypass and anastomosis status; G62.9 Polyneuropathy, unspecified; Z87.891 Personal history of nicotine dependence; Z79.891 Long term (current) use of opiate analgesic; Z79.899 Other long term (current) drug therapy
CPT/HCPCS: 52276; J2250; J1100; J0690; J2405; J2001; J3010; J1885; J2704; J1170

== ENCOUNTER → 2019-08-18 | Outpatient (CLI) | payer BC ==
--- NOTE | 2019-08-18 15:09 | XR ---
2 view abdomen HISTORY: Pain, constipation 2 views the abdomen There are probable vascular calcifications within the pelvis. Bone mineralization is maintained. No e vident bowel obstruction or pneumoperitoneum. Lung bases are clear. IMPRESSION: Nonobstructive bowel gas pattern.
== END | disposition home or self-care (01) ==
LOC: RADXRYALE 14:36
PROVIDERS: ATTEND Physician Assistant Medical
DX: R10.817 Generalized abdominal tenderness (principal)
CPT/HCPCS: 74019

== ENCOUNTER → 2021-05-15 | Outpatient (CLI) | payer BC ==
--- NOTE | 2021-05-15 12:12 | US ---
EXAMINATION TYPE: US abdomen complete DATE OF EXAM: 05/15/2021 COMPARISON: Ultrasound 01/25/2019 CLINICAL HISTORY: R10.816 epigastric tenderness, R14.0 gaseous, R10.811ruq abd. RUQ pain, epigastric pain EXAM MEASUREMENTS: Liver Length: 16.2 cm Gallbladder Wall: 0.2 cm CBD: 0.5 cm Spleen: 11.2 cm Right Kidney: 11.7 cm Left Kidney: 11.4 cm Pancreas: Tail obscured by overlying bowel gas Liver: appears wnl Gallbladder: no evidence of stones Evidence for sonographic Luna's sign: no CBD: appears wnl Spleen: wnl Right Kidney: no evidence of hydronephrosis Left Kidney: no evidence of hydronephrosis Upper IVC: wnl Abd Aorta: distal/bifurcation obscured by overlying bowel content The liver is homogenous. The intrahepatic portion of the IVC and proximal abdominal aorta are within normal limits. There is no evidence of cholelithiasis. Common bile duct is unremarkable. The visu alized portions of the pancreas are homogenous. The spleen is unremarkable. Kidneys are symmetric a nd free of hydronephrosis. No renal lesions are seen. IMPRESSION: No significant abnormalities evident, there are some mild limitations to the exam
== END | disposition home or self-care (01) ==
LOC: RADUSWWP 08:22
PROVIDERS: ATTEND Family Medicine
DX: R10.11 Right upper quadrant pain (principal); R10.13 Epigastric pain; R10.816 Epigastric abdominal tenderness
CPT/HCPCS: 76700

== ENCOUNTER → 2024-04-07 | Outpatient (CLI) | payer BC ==
--- NOTE | 2024-05-09 16:31 | US ---
Site ID [facility] Blaine Silva ID [id number] 1980 Age/Gender: 43Y, N/A Order # N/A Procedure US gallbladder Date 04/07/2024 9:00:00 AM INDICATION: Patient age: [age] year old; Reason for study: Right upper quadrant pain COMPARISON: None, please note PACS Production downtime occurred during the radiologist interpretation of these images with limited priors/reports.. TECHNIQUE: Multiple grayscale and color doppler ultrasound images of the right upper abdomen obtained utilizing transabdominal imaging. FINDINGS: PANCREAS: The visualized portions of the pancreatic head, neck and body are unremarkable. LIVER: The liver demonstrates a normal echotexture. There is no evidence of dilated ducts, cystic structures , or solid mass. GALLBLADDER: The gallbladder is without evidence of wall thickening, pericholecystic fluid, or cholelithiasis. The common duct measures approximately 5 mm. Measures 9.3 x 4.3 which is upper limits of normal. Per son ographer, the sonographic Luna's sign was negative. RIGHT KIDNEY: The right kidney measures 12.4 x 4.8 x 7.1 cm, without evidence of hydronephrosis, shadowing calculus , or contour deforming solid mass. Renal parenchymal echogenicity is within normal limits. IMPRESSION: No sonographic evidence for acute process.
== END | disposition home or self-care (01) ==
LOC: RADUSWWP 10:12
PROVIDERS: ATTEND Surgery Plastic and Reconstructive Surgery
DX: R10.11 Right upper quadrant pain (principal)
CPT/HCPCS: 76705

== ENCOUNTER → 2024-04-11 | Outpatient (CLI) | payer BC ==
--- NOTE | 2024-05-10 13:29 | NM ---
EXAMINATION TYPE: NM hepatobiliary w CCK DATE OF EXAM: 04/11/2024 COMPARISON: NONE CLINICAL INDICATION: Unknown, old with history of ; TECHNIQUE: After the intravenous administration of 5 mCi Tc 99m Mebrofenin hepatobiliary scintigraphy is performed. Immediate images post injection. FINDINGS: There is satisfactory initial accumulation of tracer by the liver. The gallbladder is visualized wit hin 18 minutes. The small bowel activity is noted within 20 minutes. 8 ounces of Nepro given to pat ient to drink after 60 minutes of imaging @ 0910 3 gallbladder ejection fraction estimated at 93%. IMPRESSION: Correlate for hyperkinesia
== END | disposition home or self-care (01) ==
LOC: RADNMMAIN 06:43
PROVIDERS: ATTEND Surgery Plastic and Reconstructive Surgery
DX: F90.9 Attention-deficit hyperactivity disorder, unspecified type (principal)
CPT/HCPCS: 78226; A9537

== ENCOUNTER 2024-05-03 08:39 | Day surgery (SDC) | payer BC ==
[2024-04-28 09:36] VITALS: BMI 24.7
--- NOTE | 2024-05-03 07:41 | P.GSHP ---
History of Present Illness H&P Date: 05/03/24 CHIEF COMPLAINT: GERD and colon screen HISTORY OF PRESENT ILLNESS: The patient is a 43-year-old male who presents with gastroesophageal reflux disease and need for colon screen. Upper and lower endoscopy were offered for further evaluation and management. PAST MEDICAL HISTORY: Please see list. PAST SURGICAL HISTORY: Please see list. MEDICATIONS: Please see list. ALLERGIES: Please see list. SOCIAL HISTORY: No illicit drug use FAMILY HISTORY: No reports of Crohn disease or ulcerative colitis. REVIEW OF ORGAN SYSTEMS: CONSTITUTIONAL: No reports of fevers or chills. GI: Denies any blood in stools or constipation. PHYSICAL EXAM: VITAL SIGNS: Stable GENERAL: Well-developed pleasant in no acute distress. HEENT: No scleral icterus. Extraocular movements grossly intact. Moist buccal mucosa. NECK: Supple without lymphadenopathy. CHEST: Unlabored respirations. Equal bilateral excursions. CARDIOVASCULAR: Regular rate and rhythm. Distal 2+ pulses. ABDOMEN: Soft, nondistended. MUSCULOSKELETAL: No clubbing, cyanosis, or edema. ASSESSMENT: 1. Gastroesophageal reflux disease 2. Colon screen. PLAN: 1. Recommend proceeding with an upper and lower endoscopy Past Medical History Past Medical History: No Reported History History of Any Multi-Drug Resistant Organisms: None Reported Past Surgical History: Appendectomy, Back Surgery, Bowel Resection, Hernia Repair, Orthopedic Surgery Additional Past Surgical History / Comment(s): several back surgeries; hernia surgery, evacuation of hemoperitoneum, small bowel resection of ileum with primary anastomosis Past Anesthesia/Blood Transfusion Reactions: No Reported Reaction Additional Past Anesthesia/Blood Transfusion Reaction / Comment(s): no blood transfusion Smoking Status: Current every day smoker Medications and Allergies Home Medications Medication Instructions Recorded Confirmed Type oxyCODONE-APAP 7.5-325MG [Percocet 1 tab PO Q4HR PRN 01/25/19 04/28/24 History 7.5-325 mg] Allergies Allergy/AdvReac Type Severity Reaction Status Date / Time Iodinated Contrast Media Allergy Vomiting Verified 04/28/24 09:31
[~2024-05-03 08:39] MED LIST changes: -DEXAMETHASONE SOD PHOSPHATE 10 MG/ML 1 ML VIAL IV ONE; -KETOROLAC 30 MG/ML 1 ML VIAL IVP SCH; +LIDOCAINE 1% (10MG/ML) FOR IV START INTRADERMA PRN; -LIDOCAINE 1% 20 ML VIAL (10MG/ML) FOR IV START INTRADERMA PRN; -ONDANSETRON 4 MG/2 ML VIAL IVP ONE; -ONDANSETRON 4 MG/2 ML VIAL IVP PRN
[2024-05-03] MEDS: IV FLUID CONTINUATION 1,000 ML IV ONE (08:54)
[2024-05-03 08:59] VITALS: TEMP 97.7
[2024-05-03] MEDS ORDERED: PROPOFOL 10 MG/ML 20 ML VIAL IV ONE (09:58)
--- NOTE | 2024-05-03 10:22 | P.PCN ---
Date of Procedure: 05/03/24 Description of Procedure: PREOPERATIVE DIAGNOSIS: Gastroesophageal reflux disease. Gastric ulcers POSTOPERATIVE DIAGNOSIS: Gastroesophageal reflux disease with erosive esophagitis. Gastritis. Diaphragmatic hiatal hernia OPERATION: Esophagogastroduodenoscopy with biopsies along antrum and duodenum SURGEON: Sugey Yang MD ANESTHESIA: MAC. INDICATIONS: The patient is a 43-year-old male who presents with gastric ulcers and reflux disease. Benefits and risks of the procedure were described. Informed consent was obtained. DESCRIPTION: The patient was brought into the endoscopy suite and laid in the left lateral decubitus position. An Olympus gastroscope was passed along the posterior oropharynx down to the distal esophagus where the squamocolumnar junction was encountered at 43 cm from the incisors. The stomach was entered and no bile reflux was found. Additional findings are listed below. Biopsies with cold forceps were obtained of the antrum. The first through third portion of the duodenum was examined. Retroflexion of the scope confirmed Hill grade 2 lower esophageal valve. The squamocolumnar junction demonstrated LA grade B erosive esophagitis. The stomach was desufflated. The patient tolerated the procedure well. FINDINGS: Squamocolumnar junction 43 cm from the incisors. Diaphragmatic hiatus at 48 cm. Hiatal hernia, 5 cm Hill grade 2 lower esophageal valve. LA grade B erosive esophagitis. Biopsies obtained Biopsies obtained of the duodenum. Chronic gastritis with biopsies obtained. RECOMMENDATIONS: Upper endoscopy as needed.
--- NOTE | 2024-05-03 11:28 | P.PCN ---
Date of Procedure: 05/03/24 Description of Procedure: PREOPERATIVE DIAGNOSIS: Family history malignant colon polyps Colonoscopy screening POSTOPERATIVE DIAGNOSIS: Tubular adenoma rectum OPERATION: Colonoscopy to the ileocecal valve and appendiceal orifice, cecum Colonoscopy with hot snare polypectomy SURGEON: Sugey Yang MD. ANESTHESIA: MAC. INDICATIONS: The patient is an 43-year-old male who presents family history of malignant colon polyps.this is first colonoscopy assessment benefits and risks were described and informed consent was obtained. DESCRIPTION OF PROCEDURE: The patient had undergone GoLytely prep. The patient had been brought into the operating room and laid in the left lateral decubitus position. After adequate intravenous sedation, the rectum was examined with 2% lidocaine jelly. The prostate was unremarkable. External hemorrhoids were encountered. The rectal tone was within normal limits. No lesions were palpated in the rectal vault. An Olympus colonoscope was advanced until the cecum, ileocecal valve and appendiceal orifice were clearly viewed. The prep was fair. No large sigmoid diverticulosis was encountered. Colonic polyps were found and removed. No evidence of focal colitis was found. Retroflexion of the scope demonstrated grade 2 internal hemorrhoids without active bleeding or inflammation. The colon was desufflated. The patient had tolerated the procedure well. Withdrawal time was over 6 minutes. FINDINGS: Aronchick preparation quality scale 2+ (1-5) Internal hemorrhoids, grade 2 External hemorrhoids, grade 2. No arteriovenous malformations. No large sigmoid diverticulosis Highly redundant sigmoid colon requiring abdominal wall pressure Removal of 1 polyps: - Snare polypectomy 10 cm from the anal verge, 5 mm tubulovillous adenoma, rectum No focal colitis. RECOMMENDATIONS: Repeat colonoscopy 3 years, 2026 Plan - Discharge Summary Discharge Rx Participant: No New Discharge Prescriptions: Continue oxyCODONE-APAP 7.5-325MG [Percocet 7.5-325 mg] 1 tab PO Q4HR PRN PRN Reason: Pain Discharge Medication List oxyCODONE-APAP 7.5-325MG [Percocet 7.5-325 mg] 1 tab PO Q4HR PRN 01/25/19 [History] Follow up Appointment(s)/Referral(s): Sugey Yang MD [STAFF PHYSICIAN] - 05/23/24 4:30 pm Patient Instructions/Handouts: *Surgery [facility] - (Anesthesia) Discharge Instructions Outpatient Surgery, Colorectal Polyps (GEN), Hiatal Hernia (DC) Activity/Diet/Wound Care/Special Instructions: Repeat colonoscopy 3 years, 2026 Discharge Disposition: HOME SELF-CARE
[2024-05-03 12:30] VITALS: BP 128/78; PULSE 72; RESP 17
== END 2024-05-03 12:20 | disposition home or self-care (01) ==
LOC: ORWHC2ENDO 08:39
PROVIDERS: ATTEND Surgery Plastic and Reconstructive Surgery
DX: Z12.11 Encounter for screening for malignant neoplasm of colon (principal); K21.00 Gastro-esophageal reflux disease with esophagitis, without bleeding; K31.89 Other diseases of stomach and duodenum; K44.9 Diaphragmatic hernia without obstruction or gangrene; K62.1 Rectal polyp; K25.9 Gastric ulcer, unspecified as acute or chronic, without hemorrhage or perforation; K29.70 Gastritis, unspecified, without bleeding; F17.200 Nicotine dependence, unspecified, uncomplicated; Z80.0 Family history of malignant neoplasm of digestive organs; Z90.49 Acquired absence of other specified parts of digestive tract; Z91.041 Radiographic dye allergy status; Z98.890 Other specified postprocedural states
CPT/HCPCS: 43239; 45385; 88305

== ENCOUNTER → 2024-07-07 | Outpatient (CLI) | payer BC ==
--- NOTE | 2024-07-07 11:10 | MR ---
EXAMINATION TYPE: MR lumbar spine wo con DATE OF EXAM: 07/07/2024 COMPARISON: 06/11/2010 HISTORY: Chronic lower back pain, RLE and back of left thigh radiculopathy. Back surgery 2010. TECHNIQUE: Multiplanar, multisequence images of the lumbar spine were acquired without IV contrast. Findings: The lumbar vertebral segments are normal in height and alignment and there is no fracture or subluxat ion. The disc spaces are well-maintained in height and signal intensity at the L1-2, L2-3, L3-4 and L4-5 l evels. There is moderate disc space narrowing, loss of signal intensity and spondylosis at the L5-S1 level indicating moderate degenerative disc disease. Secondary to circumferential disc bulge, thickening ligamentum flavum and mild facet hypertrophy, the re is a minimal spinal stenosis at the L4-5 level. Secondary to circumferential disc bulge there is mild to moderate neural foraminal stenosis at the L4 -5 level on the left and at the L5-S1 level bilaterally. The paraspinal soft tissues are unremarkable. The conus medullaris and cauda equina appear normal. IMPRESSION: 1. Moderate degenerative disease at the L5-S1 level. 2. Minimal spinal stenosis at the L4-5 level described above. 3. Izal-ix-kqphurff neuroforaminal stenosis at L4-5 level on the left and at the L5-S1 level viraj tellez [facility], , 07/07/2024 11:08 AM
--- NOTE | 2024-07-07 11:55 | MR ---
EXAMINATION TYPE: MR brain wo/w con DATE OF EXAM: 07/07/2024 COMPARISON: None HISTORY: Head trauma May 2023, headaches, memory loss. TECHNIQUE: Multiplanar, multisequence images of the brain and brainstem is performed without and with IV contras t, utilizing 7 mL intravenous Gadobutrol . FINDINGS: On the T1-weighted sagittal images the midline structures including the craniovertebral junction rela tionships are normal. The ventricles, basal cisterns and sulci over the convexities are within normal limits and there is n o mass effect or shift of midline structures. No abnormal signal intensity is seen throughout the brain parenchyma. On diffusion-weighted imaging, there is no diffusion restriction or acute ischemic event. Following contrast administration, there is no pathological enhancement. Intraorbital contents appear normal symmetric. There is mild chronic sinusitis involving the maxillary and ethmoid and sphenoid sinuses. There is ma rked fluid within the left mastoid air cells and middle ear cavity consistent with acute mastoiditis and possibly right otitis medial. IMPRESSION: 1. No mass, mass effect, acute ischemic event or pathological enhancement throughout the parenchyma. 2. Inflammatory change in the left mastoid air cells and probable left middle ear cavity. 3. Mild chronic inflammatory change in the paranasal sinuses as described above. [facility], , 07/07/2024 11:53 AM
== END | disposition home or self-care (01) ==
LOC: RADMRIMAIN 07:09
PROVIDERS: ATTEND Family Medicine
DX: M51.17 Intervertebral disc disorders with radiculopathy, lumbosacral region (principal); M99.73 Connective tissue and disc stenosis of intervertebral foramina of lumbar region; R42 Dizziness and giddiness; R41.0 Disorientation, unspecified; R29.6 Repeated falls
CPT/HCPCS: 70553; 72148; A9585

== ENCOUNTER → 2024-09-04 | Outpatient (CLI) | payer BC ==
--- NOTE | 2024-09-04 11:47 | FL ---
EXAMINATION TYPE: FL barium swallow DATE OF EXAM: 09/04/2024 COMPARISON: None. CLINICAL INDICATION: Male, 43 years old with history of R44.9 DIAPHRAGMATIC HERNIA; PHH, recent unexp lained weight loss with sore throat for 5 years. TECHNIQUE: A double contrast esophagram is performed utilizing air and barium. A total of 23 second s of fluoroscopic time was utilized during procedure and 33 images obtained. Total dose area product (DAP) in uGy*m?, mGy*cm? (or similar) unknown. COMPARISON: None FINDINGS: The esophagus shows normal motility and emptying into the stomach. No evidence of fixed hi atal hernia or stricture noted. No intraluminal mass. No significant gastroesophageal reflux was seen during real time performance of this study. IMPRESSION: No significant abnormality identified on today's study. [facility], , 09/04/2024 11:45 AM
== END | disposition home or self-care (01) ==
LOC: RADFLMAIN 09:07
PROVIDERS: ATTEND Surgery Plastic and Reconstructive Surgery
DX: K44.9 Diaphragmatic hernia without obstruction or gangrene (principal); R63.4 Abnormal weight loss
CPT/HCPCS: 74220

== ENCOUNTER → 2024-09-12 | Outpatient (CLI) | payer BC ==
--- NOTE | 2024-09-12 10:35 | CT ---
EXAMINATION TYPE: CT sinus wo con DATE OF EXAM: 09/12/2024 COMPARISON: MRI brain July 07, 2024 CLINICAL INDICATION: Male, 43 years old with history of J32.0 CHRONIC MAXILLARY SINUSITIS; PHH, Chron ic maxillary sinusitis TECHNIQUE: CT scan of the sinuses is performed without contrast, axial images are obtained, coronal r eformatted images are also reviewed. CT DLP: 538.70 mGycm Automated exposure control for dose reduction was used. FINDINGS: Minimal mucosal thickening inferior aspect bilateral maxillary sinuses right greater than left is red emonstrated. Pstb-bd-kdbohlif mucosal thickening to the bilateral ethmoid sinuses is redemonstrated. Patchy secretions posterior right ethmoid sinus axial image 28 noted. Mild mucosal thickening inferio r aspect of the bilateral sphenoid sinuses. The ostiomeatal complex is occluded bilaterally on the co carina images due to antral mucosal thickening. Nasal septum remains deviated to right of midline. Visualized portion of mastoid air cells redemonstrate near-complete opacification on the left simila r to MRI. The globes are intact bilaterally. IMPRESSION: 1. Possible mild to minimal acute right posterior ethmoid sinusitis on background chronic paranasal s inus disease as detailed above. Correlate clinically. Chronic findings appear similar to recent MRI. 2. Possible left-sided mastoiditis versus retained secretions, correlate clinically. Similar findings to most recent MRI noted. [facility], , 09/12/2024 10:32 AM
== END | disposition home or self-care (01) ==
LOC: RADCTMAIN 09:49
PROVIDERS: ATTEND Otolaryngology
DX: J32.0 Chronic maxillary sinusitis (principal)
CPT/HCPCS: 70486